=== PATIENT | male | born 1970 | race Caucasian/White ===

== ENCOUNTER 2017-08-29 15:51 | Emergency (ER) | payer OTHER ==
[~2017-08-29] VITALS: Ht 185.4 cm; Wt 74.8 kg
[~2017-08-29 15:51] MED LIST: BENTYL20 MG PO; Bactrim Ds Tab1 EACH PO; CHLO25 PO; CIPR500 PO; CIPRO500 MG PO; CREON DR 36,001 EACH PO; Cleocin HCl300 MG PO; ESOM20 PO; FAMO10 PO; FAMO20 PO; FOLI1 PO; Flagyl500 MG PO; GABA300 PO; HALO5 PO; HYDHCL25 PO; HYDMOR2 PO; HYDMOR8 PO; HYDR1TAB94 PO; INSR10I SC; INSULIN SYRING1 EAC1 SC; Keflex500 MG PO; LITHIUM; LORA.5 PO; LORA1 PO; Lantus100 UNIT/1 SC; METO10 PO; METR500 PO; Novolog Mix 70-33 M1; OMEP10ER PO; OMEP20ER PO; OMEP40CA12 PO; OXYACE5T PO; OXYC10TA19 PO; PANCRELIPASE D1 EACH PO; PANT20 PO; PROC10 PO; PROM25; PROM25 PO; PROM25S PR; Percocet 5-3251 EACH PO; Phenergan25 MG PR; QUET100 PO; RANI150 PO; RISP1 PO; RXDIPATR PO; RXLORA1 PO; RXOXYACE PO; RXPROM25 PO; SUCR1 PO; THIA100 PO; TRAM50 PO; TYLENOL PRN; VENL25 PO; ZENPEP DR 15,01 EACH PO; Zofran Odt4 MG SL; Zofran8 MG PO; [UNRECOGNIZED DRUG - OTHER]; [UNRECOGNIZED DRUG - OTHER]; [UNRECOGNIZED DRUG - OTHER] PO
[2017-08-29] MEDS ORDERED: PROMACTA12.5 MG PO (16:29)
[2017-08-29] MEDS ORDERED: ZEMPEP PO (16:30)
[2017-08-29] MEDS ORDERED: OXYC10TA19 (16:30)
[2017-08-29] MEDS ORDERED: PROM25 (16:31)
[2017-08-29 16:36] LABS: BASOPHILS ABSOLUTE AUTO 0.04 K/mm3 (0.00-0.23); BASOPHILS PERCENT AUTO 0 % (0-2); EOSINOPHILS ABSOLUTE AUTO 0.02 K/mm3 (0.00-0.68); EOSINOPHILS PERCENT AUTO 0 % (0-6); Hematocrit 41.8 % (37.0-53.0); Hemoglobin 13.7 g/dL (13.5-17.5); IMMATURE GRAN ABSOLUTE AUTO 0.06 K/mm3 (0.00-0.10); IMMATURE GRAN PERCENT AUTO 1 % (0-1); LYMPHOCYTES ABSOLUTE AUTO 1.08 K/mm3 (0.84-5.20); LYMPHOCYTES PERCENT AUTO 9 % (21-46); MONOCYTES PERCENT AUTO 7 % (4-13); Mean Corpuscular HGB 29.3 pg (26.0-34.0); Mean Corpuscular HGB Conc 32.8 g/dL (31.5-36.5); Mean Corpuscular Volume 90 fL (80-100); Mean Platelet Volume 11.1 fL (9.1-12.4); NEUTROPHILS ABSOLUTE AUTO 9.86 K/mm3 (1.96-9.15); NEUTROPHILS PERCENT AUTO 83 % (41-73); Platelet Count 218 K/mm3 (150-400); RDW Coefficient Variation 13.9 % (11.7-14.2); RDW Standard Deviation 45.7 fL (35.1-46.3); Red Blood Cell Count 4.67 M/mm3 (4.30-5.90); White Blood Cell Count 11.86 K/mm3 (4.00-11.30)
[2017-08-29 16:53] LABS: Alanine Aminotransfer (ALT/SGP 84 U/L (12-78); Albumin, Blood 2.9 g/dL (3.4-5.0); Albumin/Globulin Ratio 0.7 (0.8-1.8); Alk Phos 430 U/L (50-136); Anion Gap 7 mmol/L (6-16); Aspartate Aminotrans (AST/SGOT 80 U/L (12-37); Blood Urea Nitrogen 8 mg/dL (8-24); Bun/Creatinine Ratio 12.4 (12.0-20.0); CO2, Blood 32 mmol/L (21-32); Calcium, Blood 8.7 mg/dL (8.5-10.1); Chloride, Blood 97 mmol/L (98-108); Creatinine, Blood 0.64 mg/dL (0.60-1.20); Globulin, Blood 4.4 g/dL (2.2-4.0); Glomerular Filtration Rate >60 (60-); Glucose, Blood 176 mg/dL (70-99); Potassium, Blood 3.2 mmol/L (3.5-5.5); Sodium, Blood 136 mmol/L (136-145); Total Protein, Blood 7.3 g/dL (6.4-8.2)
== END 2017-08-29 19:45 | disposition home or self-care (01) ==
LOC: ER 15:51
PROVIDERS: Physician Assistant
DX: R11.2 Nausea with vomiting, unspecified (principal); R19.7 Diarrhea, unspecified; R10.13 Epigastric pain; G89.29 Other chronic pain; E87.6 Hypokalemia; R74.0 Nonspecific elevation of levels of transaminase and lactic acid dehydrogenase [LDH]; F17.210 Nicotine dependence, cigarettes, uncomplicated; Z79.899 Other long term (current) drug therapy
CPT/HCPCS: 36415; 80053; 83690; 85025; 96361; 96374; 96375; 96376; 99284; J2405; J3010; J7030

== ENCOUNTER 2017-09-03 18:37 | Observation (INO) | payer OTHER ==
[~2017-09-03] VITALS: Ht 185.4 cm; Wt 74.4 kg
[~2017-09-03 18:37] MED LIST changes: +OXYC10TA19; +PROMACTA12.5 MG PO; +ZEMPEP PO
[2017-09-03 19:47] LABS: BASOPHILS ABSOLUTE AUTO 0.02 K/mm3 (0.00-0.23); BASOPHILS PERCENT AUTO 0 % (0-2); EOSINOPHILS ABSOLUTE AUTO 0.03 K/mm3 (0.00-0.68); EOSINOPHILS PERCENT AUTO 0 % (0-6); Hematocrit 33.2 % (37.0-53.0); Hemoglobin 11.8 g/dL (13.5-17.5); IMMATURE GRAN ABSOLUTE AUTO 0.06 K/mm3 (0.00-0.10); IMMATURE GRAN PERCENT AUTO 0 % (0-1); LYMPHOCYTES ABSOLUTE AUTO 1.58 K/mm3 (0.84-5.20); LYMPHOCYTES PERCENT AUTO 12 % (21-46); MONOCYTES ABSOLUTE AUTO 1.64 K/mm3 (0.16-1.47); MONOCYTES PERCENT AUTO 12 % (4-13); Mean Corpuscular HGB 29.7 pg (26.0-34.0); Mean Corpuscular HGB Conc 35.5 g/dL (31.5-36.5); Mean Platelet Volume 10.3 fL (9.1-12.4); NEUTROPHILS PERCENT AUTO 76 % (41-73); Platelet Count 351 K/mm3 (150-400); RDW Coefficient Variation 14.8 % (11.7-14.2); RDW Standard Deviation 45.1 fL (35.1-46.3); Red Blood Cell Count 3.97 M/mm3 (4.30-5.90); White Blood Cell Count 13.63 K/mm3 (4.00-11.30)
[2017-09-03 19:48] LABS: Mean Corpuscular Volume 84 fL (80-100)
[2017-09-03 20:08] LABS: Alanine Aminotransfer (ALT/SGP 49 U/L (12-78); Albumin, Blood 2.3 g/dL (3.4-5.0); Albumin/Globulin Ratio 0.5 (0.8-1.8); Alk Phos 628 U/L (50-136); Anion Gap 4 mmol/L (6-16); Aspartate Aminotrans (AST/SGOT 46 U/L (12-37); Bilirubin, Total 10.4 mg/dL (0.1-1.0); Blood Urea Nitrogen 8 mg/dL (8-24); Bun/Creatinine Ratio 12.7 (12.0-20.0); CO2, Blood 38 mmol/L (21-32); Calcium, Blood 8.8 mg/dL (8.5-10.1); Chloride, Blood 92 mmol/L (98-108); Creatinine, Blood 0.63 mg/dL (0.60-1.20); Globulin, Blood 4.5 g/dL (2.2-4.0); Glomerular Filtration Rate >60 (60-); Glucose, Blood 99 mg/dL (70-99); Potassium, Blood 3.4 mmol/L (3.5-5.5); Sodium, Blood 134 mmol/L (136-145); Total Protein, Blood 6.8 g/dL (6.4-8.2)
[2017-09-03 22:03] LABS: Source, Urine Clean Catch
[2017-09-03 22:07] LABS: Blood, Urine 1+ (Neg); Glucose Qualitative, Urine Neg (Neg); Ketones, Urine 1+ (Neg); Leukocyte Esterase, Urine 1+ (Neg); Nitrite, Urine Pos (Neg); Protein, Urine 1+ (Neg); Urobilinogen, Urine 4+ (Normal)
[2017-09-03 22:16] LABS: Appearance, Urine Hazy (Clear); Bilirubin, Urine 3+ (Neg); Color, Urine Amber (P-Yellow)
[2017-09-03 22:22] LABS: Amorphous Light (0-Heavy); Bacteria Not Seen /hpf; Squamous Epithelial Cells Not Seen /hpf (Few); White Blood Cells, Urine Not Seen /hpf (0-5)
[2017-09-03 22:23] LABS: Red Blood Cells, Urine 0-2 /hpf (0-2)
[2017-09-04 21:45] LABS: Source, Urine Clean Catch
[2017-09-04 21:50] LABS: Appearance, Urine Clear (Clear); Blood, Urine 1+ (Neg); Glucose Qualitative, Urine Neg (Neg); Ketones, Urine Neg (Neg); Leukocyte Esterase, Urine 1+ (Neg); Nitrite, Urine Neg (Neg); Protein, Urine Neg (Neg); Urobilinogen, Urine 2+ (Normal)
[2017-09-04 21:52] LABS: Bilirubin, Urine 3+ (Neg)
[2017-09-04 21:53] LABS: Color, Urine Amber (P-Yellow)
[2017-09-04 22:03] LABS: Bacteria Rare /hpf; Red Blood Cells, Urine 0-2 /hpf (0-2); Squamous Epithelial Cells Rare /hpf (Few); White Blood Cells, Urine 0-2 /hpf (0-5)
[2017-09-05 12:48] LABS: BASOPHILS ABSOLUTE AUTO 0.03 K/mm3 (0.00-0.23); BASOPHILS PERCENT AUTO 0 % (0-2); EOSINOPHILS PERCENT AUTO 0 % (0-6); Hematocrit 27.2 % (37.0-53.0); Hemoglobin 9.9 g/dL (13.5-17.5); IMMATURE GRAN ABSOLUTE AUTO 0.14 K/mm3 (0.00-0.10); IMMATURE GRAN PERCENT AUTO 1 % (0-1); LYMPHOCYTES ABSOLUTE AUTO 0.38 K/mm3 (0.84-5.20); LYMPHOCYTES PERCENT AUTO 2 % (21-46); MONOCYTES ABSOLUTE AUTO 0.86 K/mm3 (0.16-1.47); MONOCYTES PERCENT AUTO 5 % (4-13); Mean Corpuscular HGB 29.8 pg (26.0-34.0); Mean Corpuscular HGB Conc 36.4 g/dL (31.5-36.5); Mean Corpuscular Volume 82 fL (80-100); NEUTROPHILS PERCENT AUTO 91 % (41-73); Platelet Count 242 K/mm3 (150-400); RDW Coefficient Variation 14.5 % (11.7-14.2); RDW Standard Deviation 41.9 fL (35.1-46.3); Red Blood Cell Count 3.32 M/mm3 (4.30-5.90); White Blood Cell Count 15.91 K/mm3 (4.00-11.30)
[2017-09-05 13:05] LABS: Alanine Aminotransfer (ALT/SGP 84 U/L (12-78); Albumin, Blood 1.8 g/dL (3.4-5.0); Albumin/Globulin Ratio 0.5 (0.8-1.8); Alk Phos 469 U/L (50-136); Anion Gap 8 mmol/L (6-16); Aspartate Aminotrans (AST/SGOT 182 U/L (12-37); Bilirubin, Total 11.6 mg/dL (0.1-1.0); Blood Urea Nitrogen 10 mg/dL (8-24); Bun/Creatinine Ratio 12.2 (12.0-20.0); CO2, Blood 28 mmol/L (21-32); Calcium, Blood 7.3 mg/dL (8.5-10.1); Chloride, Blood 98 mmol/L (98-108); Creatinine, Blood 0.82 mg/dL (0.60-1.20); Globulin, Blood 3.8 g/dL (2.2-4.0); Glomerular Filtration Rate >60 (60-); Glucose, Blood 102 mg/dL (70-99); Potassium, Blood 3.7 mmol/L (3.5-5.5); Sodium, Blood 134 mmol/L (136-145); Total Protein, Blood 5.6 g/dL (6.4-8.2)
== END 2017-09-05 17:55 | disposition short-term general hospital (02) ==
LOC: ER 18:37 → MEDS 18:38 → ER 09-04 17:58 → MEDS 09-04 19:23
PROVIDERS: Emergency Medicine; Family Medicine; Internal Medicine
DX: K83.1 Obstruction of bile duct (principal); K86.1 Other chronic pancreatitis; K86.89 Other specified diseases of pancreas; K83.8 Other specified diseases of biliary tract; I81 Portal vein thrombosis; F41.9 Anxiety disorder, unspecified; A41.9 Sepsis, unspecified organism; E87.1 Hypo-osmolality and hyponatremia; E87.6 Hypokalemia; D64.9 Anemia, unspecified; R19.7 Diarrhea, unspecified; E80.6 Other disorders of bilirubin metabolism; F17.210 Nicotine dependence, cigarettes, uncomplicated; Z98.890 Other specified postprocedural states; Z79.899 Other long term (current) drug therapy; Z88.6 Allergy status to analgesic agent
CPT/HCPCS: 36415; 74177; 76705; 80053; 81001; 82947; 83605; 83690; 85025; 87040; 87077; 87086; 87147; 87186; 96361; 96374; 96375; 99285; G0378; J0696; J2060; J2405; J2543; J2550; J3010; J3480; J7030; Q9967

== ENCOUNTER → 2018-07-09 | Outpatient (CLI) | payer OTHER ==
[~2018-07-09] MED LIST changes: +BASAGLAR K100 UNIT/1 SC; +Mapap500 M1 PO; -OMEP10ER PO; +POTCHL20ER PO; +Prilosec Otc20 MG PO; +THERAPEUTIC-M1 EAC1 PO; +Thiamine HCl100 MG PO; -ZEMPEP PO
[2018-07-09 10:22] LABS: BASOPHILS ABSOLUTE AUTO 0.06 K/mm3 (0.00-0.23); BASOPHILS PERCENT AUTO 1 % (0-2); EOSINOPHILS PERCENT AUTO 2 % (0-6); IMMATURE GRAN ABSOLUTE AUTO 0.01 K/mm3 (0.00-0.10); IMMATURE GRAN PERCENT AUTO 0 % (0-1); LYMPHOCYTES ABSOLUTE AUTO 1.43 K/mm3 (0.84-5.20); LYMPHOCYTES PERCENT AUTO 30 % (21-46); MONOCYTES ABSOLUTE AUTO 0.58 K/mm3 (0.16-1.47); MONOCYTES PERCENT AUTO 12 % (4-13); Mean Corpuscular HGB 29.5 pg (26.0-34.0); Mean Corpuscular HGB Conc 34.8 g/dL (31.5-36.5); Mean Corpuscular Volume 85 fL (80-100); NEUTROPHILS ABSOLUTE AUTO 2.53 K/mm3 (1.96-9.15); NEUTROPHILS PERCENT AUTO 54 % (41-73); Platelet Count 213 K/mm3 (150-400); RDW Coefficient Variation 13.9 % (11.7-14.2); RDW Standard Deviation 42.9 fL (35.1-46.3); Red Blood Cell Count 5.42 M/mm3 (4.30-5.90); White Blood Cell Count 4.71 K/mm3 (4.00-11.30)
[2018-07-09 10:41] LABS: Alanine Aminotransfer (ALT/SGP 425 U/L (12-78); Albumin/Globulin Ratio 0.9 (0.8-1.8); Alk Phos 158 U/L (40-126); Anion Gap 8 mmol/L (6-16); Blood Urea Nitrogen 12 mg/dL (8-24); Bun/Creatinine Ratio 16.7 (12.0-20.0); CO2, Blood 37 mmol/L (21-32); Calcium, Blood 7.9 mg/dL (8.5-10.1); Chloride, Blood 93 mmol/L (98-108); Creatinine, Blood 0.72 mg/dL (0.60-1.20); Free Thyroxine 1.14 ng/dL (0.70-1.60); Globulin, Blood 3.3 g/dL (2.2-4.0); Glomerular Filtration Rate >60 (60-); Glucose, Blood 349 mg/dL (70-99); Potassium, Blood 3.2 mmol/L (3.5-5.5); Sodium, Blood 138 mmol/L (136-145); Thyroid Stimulating Hormone 0.626 uIU/mL (0.360-4.800); Total Protein, Blood 6.3 g/dL (6.4-8.2)
[2018-07-09 10:42] LABS: Aspartate Aminotrans (AST/SGOT 1050 U/L (12-37)
[2018-07-10 08:13] LABS: HBSAG SCREEN Negative (Negative); HEP A AB, IGM Negative (Negative); HEP B CORE AB, IGM Negative (Negative); HEP C VIRUS AB <0.1 (0.0-0.9)
== END | disposition home or self-care (01) ==
LOC: LAB EV 10:17 → LAB SHORT 10:17
PROVIDERS: General Practice
DX: E86.0 Dehydration (principal); K70.10 Alcoholic hepatitis without ascites; R53.81 Other malaise
CPT/HCPCS: 80053; 80074; 83690; 84439; 84443; 85025

== ENCOUNTER 2018-07-15 18:37 | Inpatient (IN) | payer OTHER ==
[~2018-07-15] VITALS: Ht 185.4 cm; Wt 59.2 kg
[~2018-07-15 18:37] MED LIST changes: -BASAGLAR K100 UNIT/1 SC; -Mapap500 M1 PO; -POTCHL20ER PO; -THERAPEUTIC-M1 EAC1 PO; -Thiamine HCl100 MG PO
[2018-07-15 20:23] LABS: BASOPHILS ABSOLUTE AUTO 0.02 K/mm3 (0.00-0.23); BASOPHILS PERCENT AUTO 0 % (0-2); EOSINOPHILS ABSOLUTE AUTO 0.01 K/mm3 (0.00-0.68); EOSINOPHILS PERCENT AUTO 0 % (0-6); Hemoglobin 15.4 g/dL (13.5-17.5); IMMATURE GRAN ABSOLUTE AUTO 0.02 K/mm3 (0.00-0.10); IMMATURE GRAN PERCENT AUTO 0 % (0-1); LYMPHOCYTES ABSOLUTE AUTO 2.28 K/mm3 (0.84-5.20); LYMPHOCYTES PERCENT AUTO 49 % (21-46); MONOCYTES ABSOLUTE AUTO 0.53 K/mm3 (0.16-1.47); MONOCYTES PERCENT AUTO 11 % (4-13); Mean Corpuscular HGB Conc 36.7 g/dL (31.5-36.5); Mean Platelet Volume 11.6 fL (9.1-12.4); NEUTROPHILS ABSOLUTE AUTO 1.82 K/mm3 (1.96-9.15); NEUTROPHILS PERCENT AUTO 39 % (41-73); Platelet Count 80 K/mm3 (150-400); RDW Coefficient Variation 14.4 % (11.7-14.2); Red Blood Cell Count 5.14 M/mm3 (4.30-5.90); White Blood Cell Count 4.68 K/mm3 (4.00-11.30)
[2018-07-15 20:27] LABS: Mean Corpuscular Volume 82 fL (80-100)
[2018-07-15 20:40] LABS: Alanine Aminotransfer (ALT/SGP 345 U/L (12-78); Albumin, Blood 3.2 g/dL (3.4-5.0); Alk Phos 254 U/L (50-136); Anion Gap 16 mmol/L (6-16); Aspartate Aminotrans (AST/SGOT 273 U/L (12-37); Bilirubin, Total 7.2 mg/dL (0.1-1.0); Blood Urea Nitrogen 15 mg/dL (8-24); Bun/Creatinine Ratio 21.2 (12.0-20.0); CO2, Blood 32 mmol/L (21-32); Calcium, Blood 8.9 mg/dL (8.5-10.1); Chloride, Blood 82 mmol/L (98-108); Creatinine, Blood 0.71 mg/dL (0.60-1.20); Globulin, Blood 3.2 g/dL (2.2-4.0); Glomerular Filtration Rate >60 (60-); Glucose, Blood 318 mg/dL (70-99); Potassium, Blood 3.5 mmol/L (3.5-5.5); Sodium, Blood 130 mmol/L (136-145); Total Protein, Blood 6.4 g/dL (6.4-8.2)
[2018-07-15 20:58] LABS: Source, Urine Clean Catch
[2018-07-15 21:00] LABS: Blood, Urine 4+ (Neg); Glucose Qualitative, Urine 4+ (Neg); Ketones, Urine 2+ (Neg); Leukocyte Esterase, Urine 1+ (Neg); Nitrite, Urine Neg (Neg); Protein, Urine 2+ (Neg); Specific Gravity, Urine 1.025 (1.003-1.022); Urobilinogen, Urine 2+ (Normal)
[2018-07-15 21:06] LABS: Bilirubin, Urine 2+ (Neg)
[2018-07-15 21:07] LABS: Appearance, Urine Hazy (Clear); Color, Urine Orange (P-Yellow)
[2018-07-15 21:08] LABS: Squamous Epithelial Cells Rare /hpf (Few)
[2018-07-15 21:09] LABS: Bacteria Rare /hpf; Hyaline Casts Rare /lpf (0-2); Red Blood Cells, Urine Not Seen /hpf (0-2)
[2018-07-16 02:21] LABS: International Normalized Ratio 1.5; Prothrombin Time Results 15.3 Sec (9.7-11.5)
[2018-07-16 02:55] LABS: Calcium, Ionized (POC) 0.99 mmol/L (1.10-1.46); Chloride (POC) 88 mmol/L (98-108); Creatinine (POC) 0.6 mg/dL (0.8-1.3); Glucose (ISTAT POC) 212 mg/dL (70-99); Potassium (POC) 3.6 mmol/L (3.5-5.5); Sodium (POC) 134 mmol/L (135-148); Total CO2 (POC) 31 mmol/L (21-32)
[2018-07-16 05:42] LABS: Hematocrit 33.9 % (37.0-53.0); Hemoglobin 12.7 g/dL (13.5-17.5); Mean Corpuscular HGB 30.2 pg (26.0-34.0); Mean Corpuscular HGB Conc 37.5 g/dL (31.5-36.5); Mean Corpuscular Volume 81 fL (80-100); Platelet Count 59 K/mm3 (150-400); RDW Coefficient Variation 14.4 % (11.7-14.2); RDW Standard Deviation 40.8 fL (35.1-46.3)
[2018-07-16 06:00] LABS: Mean Platelet Volume 13.2 fL (9.1-12.4)
[2018-07-16 06:11] LABS: Alanine Aminotransfer (ALT/SGP 272 U/L (12-78); Albumin, Blood 2.7 g/dL (3.4-5.0); Albumin/Globulin Ratio 1.1 (0.8-1.8); Alk Phos 222 U/L (50-136); Anion Gap 10 mmol/L (6-16); Aspartate Aminotrans (AST/SGOT 233 U/L (12-37); Bilirubin, Total 8.2 mg/dL (0.1-1.0); Blood Urea Nitrogen 15 mg/dL (8-24); Bun/Creatinine Ratio 26.5 (12.0-20.0); CO2, Blood 34 mmol/L (21-32); Calcium, Blood 8.1 mg/dL (8.5-10.1); Chloride, Blood 92 mmol/L (98-108); Creatinine, Blood 0.57 mg/dL (0.60-1.20); Globulin, Blood 2.5 g/dL (2.2-4.0); Glomerular Filtration Rate >60 (60-); Glucose, Blood 224 mg/dL (70-99); Potassium, Blood 3.6 mmol/L (3.5-5.5); Sodium, Blood 136 mmol/L (136-145); Total Protein, Blood 5.2 g/dL (6.4-8.2)
[2018-07-16] MEDS ORDERED: INSR10I SC (18:31)
[2018-07-16] MEDS ORDERED: BASAGLAR K100 UNIT/1 SC (18:33)
[2018-07-16] MEDS ORDERED: Mapap500 M1 PO (18:34)
[2018-07-16] MEDS ORDERED: LORA.5 PO (18:36)
[2018-07-16] MEDS ORDERED: POTCHL20ER PO (18:38)
--- NOTE | 2018-07-16 18:41 | NUR ---
PT AOX4 WITH ANXIETY TREATED PER EMAR. PT 1 PERSON STANDBY FOR TRANSFERS CIWAs SCORE 7. PT SITTING IN BED APPROPRIATE WITH ALL CARE. NO DISTRESS AT THIS TIME.
[2018-07-16 22:21] LABS: U Amphetamine Screen Not Detected; U Barbituate Screen Not Detected; U Benzodiazapine Screen DETECTED; U Buprenorphine Screen Not Detected; U Cannabinoids Screen Not Detected; U Cocaine Screen Not Detected; U Methadone Screen Not Detected; U Methamphetamine Screen Not Detected; U Opiates Screen DETECTED; U Oxycodone Screen Not Detected; U Phencyclidine Screen Not Detected; U Propoxyphene Screen Not Detected
[2018-07-16 23:36] LABS: Adenovirus F 40/41 Not Detected (NOT DETECT); Astrovirus Not Detected (NOT DETECT); Campylobacter Sp Not Detected (NOT DETECT); Cryptosporidium Not Detected (NOT DETECT); Cyclospora Cayetanensis Not Detected (NOT DETECT); E. Coli O157 Not Detected (NOT DETECT); Entamoeba Histolytica Not Detected (NOT DETECT); Enteroaggregative E. coli-EAEC Not Detected (NOT DETECT); Enteropathogenic E. coli-EPEC Not Detected (NOT DETECT); Enterotoxigenic E. coli-ETEC Not Detected (NOT DETECT); Giardia Lamblia Not Detected (NOT DETECT); Norovirus GI/GII Not Detected (NOT DETECT); Plesiomonas Shigelloides Not Detected (NOT DETECT); Rotavirus A Not Detected (NOT DETECT); Salmonella Sp Not Detected (NOT DETECT); Sapovirus Not Detected (NOT DETECT); Shiga Toxin-prod E. coli-STEC Not Detected (NOT DETECT); Shigella/Enteroin E. coli-EIEC Not Detected (NOT DETECT); Vibrio Cholerae Not Detected (NOT DETECT); Vibrio Sp Not Detected (NOT DETECT); Yersinia Enterocolitica Not Detected (NOT DETECT)
--- NOTE | 2018-07-17 04:32 | NUR ---
SHIFT SUMMARY: PT IS ALERT AND ORIENTED. PT IS CALM AND COOPERATIVE WITH CARE. PT CALLS APPROPRIATELY. PT IS INDEPENDENT IN THE ROOM. PT REPORTS ABD PAIN AND ETOH WITHDRAWAL SYMPTOMS, CIWA 9, MEDICATING PER EMAR. PT DENIES NAUSEA, VOMITING, AND SOB. PT SLEPT VERY LITTLE OVERNIGHT. NO ACUTE CHANGES OR COMPLICATIONS THIS SHIFT. WILL REPORT TO DAY NURSE.
[2018-07-17 08:12] LABS: HBSAG SCREEN Negative (Negative); HEP A AB, IGM Negative (Negative); HEP B CORE AB, IGM Negative (Negative); HEP C VIRUS AB <0.1 (0.0-0.9)
[2018-07-17 10:35] LABS: BASOPHILS ABSOLUTE AUTO 0.02 K/mm3 (0.00-0.23); BASOPHILS PERCENT AUTO 0 % (0-2); EOSINOPHILS ABSOLUTE AUTO 0.03 K/mm3 (0.00-0.68); EOSINOPHILS PERCENT AUTO 1 % (0-6); Hematocrit 35.8 % (37.0-53.0); Hemoglobin 13.1 g/dL (13.5-17.5); IMMATURE GRAN ABSOLUTE AUTO 0.01 K/mm3 (0.00-0.10); IMMATURE GRAN PERCENT AUTO 0 % (0-1); LYMPHOCYTES ABSOLUTE AUTO 1.67 K/mm3 (0.84-5.20); LYMPHOCYTES PERCENT AUTO 31 % (21-46); MONOCYTES ABSOLUTE AUTO 0.57 K/mm3 (0.16-1.47); MONOCYTES PERCENT AUTO 11 % (4-13); Mean Corpuscular HGB 30.2 pg (26.0-34.0); Mean Corpuscular HGB Conc 36.6 g/dL (31.5-36.5); Mean Corpuscular Volume 83 fL (80-100); NEUTROPHILS ABSOLUTE AUTO 3.06 K/mm3 (1.96-9.15); NEUTROPHILS PERCENT AUTO 57 % (41-73); Platelet Count 52 K/mm3 (150-400); RDW Coefficient Variation 14.9 % (11.7-14.2); RDW Standard Deviation 43.6 fL (35.1-46.3); Red Blood Cell Count 4.34 M/mm3 (4.30-5.90); White Blood Cell Count 5.36 K/mm3 (4.00-11.30)
[2018-07-17 10:51] LABS: Alanine Aminotransfer (ALT/SGP 231 U/L (12-78); Albumin, Blood 2.7 g/dL (3.4-5.0); Albumin/Globulin Ratio 0.9 (0.8-1.8); Alk Phos 325 U/L (50-136); Anion Gap 9 mmol/L (6-16); Aspartate Aminotrans (AST/SGOT 179 U/L (12-37); Bilirubin, Total 11.4 mg/dL (0.1-1.0); Blood Urea Nitrogen 12 mg/dL (8-24); Bun/Creatinine Ratio 20.2 (12.0-20.0); CO2, Blood 31 mmol/L (21-32); Calcium, Blood 7.8 mg/dL (8.5-10.1); Chloride, Blood 91 mmol/L (98-108); Creatinine, Blood 0.59 mg/dL (0.60-1.20); Glomerular Filtration Rate >60 (60-); Glucose, Blood 339 mg/dL (70-99); Potassium, Blood 3.1 mmol/L (3.5-5.5); Sodium, Blood 131 mmol/L (136-145); Total Protein, Blood 5.7 g/dL (6.4-8.2)
--- NOTE | 2018-07-17 18:32 | NUR ---
SHFIT SUMMARY PATIENT A&O X 3. SEEMS CONFUSED AT TIMES. RN MEDICATED FOR ABDOMINAL PAIN X2. CIWA Q 4HRS, MEDICATED PER Jul. PATIENT HAS BEEN RESTING MOST OF THE SHIFT. CONTINUE TO REQUEST FOR HIS DIET TO BE ADVANCED TO REGULAR DIET. DR. BARRETT NOTIFIED, DIET CONTINUES TO BE CLEAR LIQUID AT THIS TIME. ACHS. IV POTASSIUM CHLORIDE D/C THIS SHIFT DUE TO PATIENT NOT TOLERATING WELL, STATED IT WAS BURNING EVEN THOUGH RN HAD IT RUNNING CONCURRENTLY W/ NS @ A LOWER RATE. DR. BARRETT NOTIFIED. LIQUID POTASSIUM GIVEN PER Jul. BANANA BAG RUNNING @ 200ML/HR. IV ABX PER Jul. BED IN LOWEST POSITION, CALL LIGHT WITHIN REACH. NO OTHER ACUTE CHANGES. RN WILL CONTINUE TO MONITOR.
--- NOTE | 2018-07-18 04:50 | NUR ---
SHIFT SUMMARY: PT IS ALERT AND ORIENTED WITH MINOR CONFUSION. PT IS CALM AND COOPERATIVE WITH CARE. PT CALLS APPROPRIATELY. PT'S IV OCCLUDING OFTEN, STARTED NEW 22G IN THE L. FOREARM WHICH SO FAR HAS SOLVED THE PROBLEM. PT IS INDEPENDENT IN THE ROOM. PT CONTINUES TO REPORT ABD PAIN, MEDICATING PER EMAR. PT WANTS WHOLE FOOD FOR BREAKFAST AND IS WILLING TO CUT BACK ON THE PAIN MEDICATION PER DR. BARRETT'S REQUEST. PT DENIES NAUSEA, VOMITING, AND SOB. NO ACUTE CHANGES OR COMPLICATIONS OVERNIGHT. WILL REPORT TO DAY NURSE.
[2018-07-18 05:18] LABS: BASOPHILS ABSOLUTE AUTO 0.01 K/mm3 (0.00-0.23); BASOPHILS PERCENT AUTO 0 % (0-2); EOSINOPHILS ABSOLUTE AUTO 0.07 K/mm3 (0.00-0.68); EOSINOPHILS PERCENT AUTO 2 % (0-6); Hematocrit 31.7 % (37.0-53.0); Hemoglobin 11.4 g/dL (13.5-17.5); IMMATURE GRAN ABSOLUTE AUTO 0.02 K/mm3 (0.00-0.10); IMMATURE GRAN PERCENT AUTO 0 % (0-1); LYMPHOCYTES ABSOLUTE AUTO 1.85 K/mm3 (0.84-5.20); LYMPHOCYTES PERCENT AUTO 41 % (21-46); MONOCYTES PERCENT AUTO 9 % (4-13); Mean Corpuscular HGB 30.8 pg (26.0-34.0); NEUTROPHILS PERCENT AUTO 48 % (41-73); Platelet Count 51 K/mm3 (150-400); RDW Coefficient Variation 15.6 % (11.7-14.2); RDW Standard Deviation 47.5 fL (35.1-46.3); White Blood Cell Count 4.55 K/mm3 (4.00-11.30)
[2018-07-18 05:23] LABS: Mean Corpuscular Volume 86 fL (80-100)
[2018-07-18 05:30] LABS: International Normalized Ratio 1.03; Prothrombin Time Results 10.9 Sec (9.7-11.5)
[2018-07-18 05:41] LABS: Alanine Aminotransfer (ALT/SGP 172 U/L (12-78); Albumin, Blood 2.3 g/dL (3.4-5.0); Albumin/Globulin Ratio 0.9 (0.8-1.8); Alk Phos 281 U/L (50-136); Anion Gap 7 mmol/L (6-16); Aspartate Aminotrans (AST/SGOT 113 U/L (12-37); Bilirubin, Total 6.6 mg/dL (0.1-1.0); Blood Urea Nitrogen 13 mg/dL (8-24); Bun/Creatinine Ratio 23.4 (12.0-20.0); CO2, Blood 31 mmol/L (21-32); Calcium, Blood 7.8 mg/dL (8.5-10.1); Chloride, Blood 101 mmol/L (98-108); Creatinine, Blood 0.56 mg/dL (0.60-1.20); Globulin, Blood 2.7 g/dL (2.2-4.0); Glomerular Filtration Rate >60 (60-); Glucose, Blood 158 mg/dL (70-99); Potassium, Blood 3.4 mmol/L (3.5-5.5); Sodium, Blood 139 mmol/L (136-145)
--- NOTE | 2018-07-18 16:33 | NUR ---
SUMMARY PT HAS BEEN A/O X4 TODAY, STATE DOES NOT FEEL LIKE HIMSELF MENTALLY, STATE FORGETFULNESS. STATE SOMEWHAT ANXIOUS. MILD TREMORS. NO DELERIUM. CIWA SCORES LOW, 4. HAVE GIVEN ATIVAN 1MG X2 AND LIBRIUM 50MG X1 SO FAR TODAY FOR ETOH W/D. VSS W HR 90'S. DR BARRETT IN TO SEE PT, REVIEW LABS & NEED FOR ABSTINENCE FROM ETOH, PT SEEMS RECEPTIVE. HAVE ENCOURAGED & RE-ENFORCED T/O DAY. DR BARRETT QUESTION + FOR C-DIFF, PT HAS NOT HAD DIARRHEA. ORDER LACTULOSE & STOOL SAMPLE. URINE IS DRK/TEA COLOR THIS AM, SKIN JAUNDICED, BILIRUBIN 6.6, LFTS ELEVATED HOWEVER DR STATE IMPROVING. IVF'S STOPPED, ORAL ANTIBX ORDERED.
--- NOTE | 2018-07-19 04:01 | NUR ---
SHIFT SUMMARY: PT IS ALERT AND ORIENTED. PT IS CALM AND COOPERATIVE WITH CARE, INTERMITTENTLY ANXIOUS AND AGITATED R/T WITHDRAWAL. PT IS INDEPENDENT IN THE ROOM. CIWA SCORE OF 4, MEDICATING PER EMAR. PT CONTINUES TO REPORT INTERMITTENT ABD PAIN, MEDICATING PER EMAR. PT DENIES NAUSEA, VOMITING, AND SOB. PT DID NOT SLEEP OVERNIGHT. NO ACUTE CHANGES OR COMPLICATIONS THIS SHIFT. BED IN LOW POSITION, CALL LIGHT WITHIN REACH.
[2018-07-19 05:46] LABS: BASOPHILS ABSOLUTE AUTO 0.01 K/mm3 (0.00-0.23); BASOPHILS PERCENT AUTO 0 % (0-2); EOSINOPHILS ABSOLUTE AUTO 0.07 K/mm3 (0.00-0.68); EOSINOPHILS PERCENT AUTO 2 % (0-6); Hemoglobin 9.8 g/dL (13.5-17.5); IMMATURE GRAN ABSOLUTE AUTO 0.01 K/mm3 (0.00-0.10); IMMATURE GRAN PERCENT AUTO 0 % (0-1); LYMPHOCYTES ABSOLUTE AUTO 1.97 K/mm3 (0.84-5.20); LYMPHOCYTES PERCENT AUTO 44 % (21-46); MONOCYTES PERCENT AUTO 14 % (4-13); Mean Corpuscular HGB 30.1 pg (26.0-34.0); Mean Corpuscular Volume 86 fL (80-100); NEUTROPHILS ABSOLUTE AUTO 1.78 K/mm3 (1.96-9.15); NEUTROPHILS PERCENT AUTO 40 % (41-73); Platelet Count 52 K/mm3 (150-400); RDW Coefficient Variation 15.7 % (11.7-14.2); RDW Standard Deviation 48.1 fL (35.1-46.3); Red Blood Cell Count 3.26 M/mm3 (4.30-5.90); White Blood Cell Count 4.44 K/mm3 (4.00-11.30)
[2018-07-19 06:07] LABS: Alanine Aminotransfer (ALT/SGP 140 U/L (12-78); Albumin, Blood 2.3 g/dL (3.4-5.0); Albumin/Globulin Ratio 0.9 (0.8-1.8); Alk Phos 275 U/L (50-136); Anion Gap 7 mmol/L (6-16); Aspartate Aminotrans (AST/SGOT 73 U/L (12-37); Bilirubin, Total 3.1 mg/dL (0.1-1.0); Blood Urea Nitrogen 15 mg/dL (8-24); Bun/Creatinine Ratio 23.5 (12.0-20.0); CO2, Blood 31 mmol/L (21-32); Calcium, Blood 8.5 mg/dL (8.5-10.1); Chloride, Blood 100 mmol/L (98-108); Creatinine, Blood 0.64 mg/dL (0.60-1.20); Globulin, Blood 2.7 g/dL (2.2-4.0); Glomerular Filtration Rate >60 (60-); Glucose, Blood 200 mg/dL (70-99); Potassium, Blood 3.5 mmol/L (3.5-5.5); Sodium, Blood 138 mmol/L (136-145)
--- NOTE | 2018-07-19 19:37 | NUR ---
SUMM- PT ALERT TO SELF, PLACE AND CIRCUMSTANCES. THIS AM PT WAS HIGHLY AGGITATED OF THE SOUNDS AROUND HIM, HIS MEALS NOT BEING RITGHT AND NOT HAVING A CIGARETTE. MEDICATED WITH ATIVAN THAT HELPED SOME. PT STILL AGGITATED AND CALLED DAD TO HAVE HIM COME GET HIM HE WANTED TO LEAVE AMA. HIS DAD Lizett NellaDEVENDRA CALLED AND STATED HE INSISTED HIS SON STAY IN THE HOSPITAL AND BOTH HIM AND RN WERE ABLE TO ENCOURAGE PT TO STAY. DR AGUILAR MADE AWARE PT WANTED TO TO. PT INSISTED TO GO OUTSIDE TO SMOKE, INSTRUCTED ON HAND HEIGENE SINCE HE IS C-DIFF POS. MADE AWARE OF RISKS OF FALLING AND TELE SHUTTING OFF. HE IS STEADY ON HIS FEET AND WENT OUTSIDE TO SMOKE X2. ONCE VOLUNTEERS HAD TO WHEEL HIM BACK TO HIS ROOM BECAUSE HE BECAME TOO TIRED. THROUGH SHIFT PT BECAME LESS ANXIOUS AND COOPERATIVE. RN ENCOURAGED HIS SOBRIETY AND POSITIVE SELF TALK. PT CRIED AND SEEMS RESPONSIVE TO ENCOURAGEMENT AND WANTS TO TRY TO STAY SOBER. AA ENCOURAGED AFTER DISCHARGE.
--- NOTE | 2018-07-20 03:56 | NUR ---
SHIFT SUMMARY THE PATIENTPRESENTED THIS SHIFT WITH CLEAR LUNG SOUNDS, A&O X4 AND WITH VITALS WNL. THE PATIENT IS INDEPENDANT IN HIS ROOM AND HAS STAY ED THERE MOST OF THE SHIFT. THE PATIENT USED HIS CALL LIGHT APPROPERIATLY. THE PATIENT HAS HAD SOME ISSSUES WITH HIS TELE LEADS WHEN UP. THE PATIENT IS SLEEPING AT THIS TIME, WILL CONTINUE TO MONITOR.
[2018-07-20 05:58] LABS: BASOPHILS ABSOLUTE AUTO 0.02 K/mm3 (0.00-0.23); BASOPHILS PERCENT AUTO 0 % (0-2); EOSINOPHILS ABSOLUTE AUTO 0.07 K/mm3 (0.00-0.68); EOSINOPHILS PERCENT AUTO 1 % (0-6); Hematocrit 31.9 % (37.0-53.0); Hemoglobin 11.1 g/dL (13.5-17.5); IMMATURE GRAN ABSOLUTE AUTO 0.01 K/mm3 (0.00-0.10); IMMATURE GRAN PERCENT AUTO 0 % (0-1); LYMPHOCYTES ABSOLUTE AUTO 2.55 K/mm3 (0.84-5.20); LYMPHOCYTES PERCENT AUTO 52 % (21-46); MONOCYTES ABSOLUTE AUTO 0.67 K/mm3 (0.16-1.47); MONOCYTES PERCENT AUTO 14 % (4-13); Mean Corpuscular HGB 30.8 pg (26.0-34.0); Mean Corpuscular HGB Conc 34.8 g/dL (31.5-36.5); Mean Platelet Volume 12.3 fL (9.1-12.4); NEUTROPHILS ABSOLUTE AUTO 1.62 K/mm3 (1.96-9.15); NEUTROPHILS PERCENT AUTO 33 % (41-73); Platelet Count 72 K/mm3 (150-400); RDW Coefficient Variation 15.9 % (11.7-14.2); RDW Standard Deviation 50.2 fL (35.1-46.3); White Blood Cell Count 4.94 K/mm3 (4.00-11.30)
[2018-07-20 06:01] LABS: Mean Corpuscular Volume 89 fL (80-100)
[2018-07-20 06:17] LABS: Alanine Aminotransfer (ALT/SGP 136 U/L (12-78); Albumin, Blood 2.7 g/dL (3.4-5.0); Albumin/Globulin Ratio 0.9 (0.8-1.8); Alk Phos 245 U/L (50-136); Anion Gap 6 mmol/L (6-16); Aspartate Aminotrans (AST/SGOT 58 U/L (12-37); Bilirubin, Total 2.9 mg/dL (0.1-1.0); Blood Urea Nitrogen 7 mg/dL (8-24); Bun/Creatinine Ratio 10.2 (12.0-20.0); CO2, Blood 34 mmol/L (21-32); Calcium, Blood 8.2 mg/dL (8.5-10.1); Chloride, Blood 102 mmol/L (98-108); Creatinine, Blood 0.68 mg/dL (0.60-1.20); Globulin, Blood 3.1 g/dL (2.2-4.0); Glomerular Filtration Rate >60 (60-); Glucose, Blood 152 mg/dL (70-99); Magnesium, Blood 1.7 mg/dL (1.6-2.4); Phosphorus, Blood 3.5 mg/dL (2.5-4.9); Potassium, Blood 3.2 mmol/L (3.5-5.5); Sodium, Blood 142 mmol/L (136-145); Total Protein, Blood 5.8 g/dL (6.4-8.2)
--- NOTE | 2018-07-20 18:04 | NUR ---
SHIFT SUMMARY. A&OX3, PLEASANT. MILD WITHDRAWL SYMPTOMS, SOME ANXIETY AND TREMORS. PRN LIBRIUM AND ATIVAN GIVEN. CIWA LESS 8-9. PT REPORTED PAIN TO ABDOMEN SECONDARY TO HX OF PANCREAS ISSUES, MANAGED WELL WITH PRN ROXICODONE. PT DENIES N/V, SOB. PT WENT OUT TO SMOKE VIA W/C ONCE. PT REPORTS HIS DAD WILL BE TO [place] FROM [place] TO UNLOCK HIS HOUSE IN TWO DAYS. PATIENT SEEN BY PHYSICAL THERAPY, THEY REPORT PT IS VERY WEAK, PT HAS BEEN INDEPENDENT IN ROOM. NO OTHER CHANGES.
--- NOTE | 2018-07-21 04:26 | NUR ---
SHIFT SUMMARY THE PATIENT PRESENT THIS SHIFT WITH CLEAR LUNGS SOUNDS, A&O X4 AND VITALS WNL. THE PATIENT IS INDEPENDENT IN HIS ROOM AND CALLS APPROPIATELY. THE PATIENT HAS ASKED FOR FOOD MOST OF THE SHIFT. THE PATIENT HAS SLEPT ABOUT HALF THE SHIFT, CLAIMING INSOMIA. THE PATIENT IS SLEEPING AT THIS TIME, WILL CONTINUE TO MONITOR.
[2018-07-21 05:18] LABS: BASOPHILS ABSOLUTE AUTO 0.02 K/mm3 (0.00-0.23); BASOPHILS PERCENT AUTO 0 % (0-2); EOSINOPHILS ABSOLUTE AUTO 0.08 K/mm3 (0.00-0.68); EOSINOPHILS PERCENT AUTO 2 % (0-6); Hematocrit 26.4 % (37.0-53.0); IMMATURE GRAN ABSOLUTE AUTO 0.01 K/mm3 (0.00-0.10); IMMATURE GRAN PERCENT AUTO 0 % (0-1); LYMPHOCYTES ABSOLUTE AUTO 1.97 K/mm3 (0.84-5.20); LYMPHOCYTES PERCENT AUTO 42 % (21-46); MONOCYTES PERCENT AUTO 15 % (4-13); Mean Corpuscular HGB 30.5 pg (26.0-34.0); Mean Corpuscular HGB Conc 34.1 g/dL (31.5-36.5); Mean Corpuscular Volume 90 fL (80-100); Mean Platelet Volume 12.4 fL (9.1-12.4); NEUTROPHILS ABSOLUTE AUTO 1.96 K/mm3 (1.96-9.15); NEUTROPHILS PERCENT AUTO 41 % (41-73); Platelet Count 82 K/mm3 (150-400); RDW Coefficient Variation 15.9 % (11.7-14.2); RDW Standard Deviation 50.1 fL (35.1-46.3); Red Blood Cell Count 2.95 M/mm3 (4.30-5.90); White Blood Cell Count 4.74 K/mm3 (4.00-11.30)
[2018-07-21 06:01] LABS: Alanine Aminotransfer (ALT/SGP 101 U/L (12-78); Albumin, Blood 2.4 g/dL (3.4-5.0); Albumin/Globulin Ratio 0.9 (0.8-1.8); Alk Phos 201 U/L (50-136); Anion Gap 4 mmol/L (6-16); Aspartate Aminotrans (AST/SGOT 37 U/L (12-37); Bilirubin, Total 1.5 mg/dL (0.1-1.0); Blood Urea Nitrogen 13 mg/dL (8-24); Bun/Creatinine Ratio 19.2 (12.0-20.0); CO2, Blood 33 mmol/L (21-32); Calcium, Blood 8.1 mg/dL (8.5-10.1); Chloride, Blood 102 mmol/L (98-108); Creatinine, Blood 0.68 mg/dL (0.60-1.20); Globulin, Blood 2.7 g/dL (2.2-4.0); Glomerular Filtration Rate >60 (60-); Glucose, Blood 302 mg/dL (70-99); Potassium, Blood 3.8 mmol/L (3.5-5.5); Sodium, Blood 139 mmol/L (136-145); Total Protein, Blood 5.1 g/dL (6.4-8.2)
--- NOTE | 2018-07-21 16:34 | NUR ---
SUMMARY PT IS A/O X4, IND IN ROOM, GAIT STEADY HOWEVER HE CONTINUES SOMEWHAT WEAK. PHYTHER WORK WITH HIM TODAY, AMBULATE IN ROOM. DC ETOH W/D, CIWA SCORES LOW, LAST 2 R/T MILD ANXIOUSNESS, MILD TREMOR. HAVE GIVEN ATIVAN & LIBRIUM PRN FOR RELIEF. BP RUNS LOW, 94/59. PT IS NO LONGER JAUNDICED. DR ORTIZ STATE LFT'S CONTINUE TO IMPROVE, BILIRUBIN DOWN @ 1.5. PT STATED SOME UPPER ABD PAIN THIS AM THAT HE STATE IS R/T PAST PANCREAS SURG, PRN OXYCODONE GIVEN FOR RELIEF. HE CONTINUES IN CONTACT ISOLATION R/T BEING A CARRIER OF C-DIFF SPORE. INFECTION RN STATE HE CAN NOT BE CLEARED.
[2018-07-22 05:15] LABS: BASOPHILS ABSOLUTE AUTO 0.02 K/mm3 (0.00-0.23); BASOPHILS PERCENT AUTO 0 % (0-2); EOSINOPHILS ABSOLUTE AUTO 0.09 K/mm3 (0.00-0.68); EOSINOPHILS PERCENT AUTO 2 % (0-6); Hematocrit 26.5 % (37.0-53.0); Hemoglobin 8.9 g/dL (13.5-17.5); IMMATURE GRAN ABSOLUTE AUTO 0.01 K/mm3 (0.00-0.10); IMMATURE GRAN PERCENT AUTO 0 % (0-1); LYMPHOCYTES ABSOLUTE AUTO 2.01 K/mm3 (0.84-5.20); LYMPHOCYTES PERCENT AUTO 42 % (21-46); MONOCYTES ABSOLUTE AUTO 0.88 K/mm3 (0.16-1.47); MONOCYTES PERCENT AUTO 19 % (4-13); Mean Corpuscular HGB 30.7 pg (26.0-34.0); Mean Corpuscular HGB Conc 33.6 g/dL (31.5-36.5); Mean Corpuscular Volume 91 fL (80-100); Mean Platelet Volume 11.4 fL (9.1-12.4); NEUTROPHILS ABSOLUTE AUTO 1.74 K/mm3 (1.96-9.15); NEUTROPHILS PERCENT AUTO 37 % (41-73); Platelet Count 116 K/mm3 (150-400); RDW Coefficient Variation 16.4 % (11.7-14.2); RDW Standard Deviation 50.4 fL (35.1-46.3); White Blood Cell Count 4.75 K/mm3 (4.00-11.30)
[2018-07-22 05:25] LABS: International Normalized Ratio 1.05; Prothrombin Time Results 11.1 Sec (9.7-11.5)
--- NOTE | 2018-07-22 05:48 | NUR ---
*SHIFT SUMMARY* PATIENT IS ALERT AND ORIENTED. INDEPENDENT IN ROOM. COMPLAINS OF FEELING ANXIOUS FROM ALL THE YELLING IN THE ROOMS AROUND HIM. PATIENT REQUESTED TO HAVE HIS LIBRIUM AND WAS MEDICATED ORDERED. PATIENT PACED BACK AND FORTH IN ROOM AT TIMES. PATIENT HAD A HARD TIME GETTING SLEEP EVEN WITH HIS DOOR BEING CLOSED. EARLY THIS AM PATIENT REQUESTED TO HAVE HIS ATIVAN AND PAIN PILL TO HELP SLEEP. PT HAD SEVERAL SNACKS THROUGHOUT THE NIGHT. CALL LIGHT WITHIN REACH, BED LOWERED AND LOCKED.
[2018-07-22 06:17] LABS: Alanine Aminotransfer (ALT/SGP 83 U/L (12-78); Albumin, Blood 2.4 g/dL (3.4-5.0); Albumin/Globulin Ratio 0.9 (0.8-1.8); Alk Phos 171 U/L (50-136); Anion Gap 4 mmol/L (6-16); Aspartate Aminotrans (AST/SGOT 33 U/L (12-37); Bilirubin, Total 1.4 mg/dL (0.1-1.0); Blood Urea Nitrogen 11 mg/dL (8-24); Bun/Creatinine Ratio 17.5 (12.0-20.0); CO2, Blood 32 mmol/L (21-32); Calcium, Blood 8.3 mg/dL (8.5-10.1); Chloride, Blood 103 mmol/L (98-108); Creatinine, Blood 0.63 mg/dL (0.60-1.20); Globulin, Blood 2.8 g/dL (2.2-4.0); Glomerular Filtration Rate >60 (60-); Glucose, Blood 297 mg/dL (70-99); Sodium, Blood 139 mmol/L (136-145); Total Protein, Blood 5.2 g/dL (6.4-8.2)
[2018-07-22] MEDS ORDERED: FOLI1 PO (11:00)
[2018-07-22] MEDS ORDERED: THERAPEUTIC-M1 EAC1 PO (11:01)
[2018-07-22] MEDS ORDERED: Thiamine HCl100 MG PO (11:01)
--- NOTE | 2018-07-22 11:41 | NUR ---
DISCHARGE DR AGUILAR IN TO SEE PT THIS AM, STATE OK FOR D/C HOME TODAY, PT IS AGREEABLE. NO TREMOR THIS AM, STATE MILD ANXIETY. PRN ATIVAN GIVEN. DR ORTIZ PROVIDE HARD COPY SCRIPT FOR ATIVAN @ HOME. [facility] D/[facility] TISSUE SPECIALIST STATE PT TO F/U WITH [facility] TOMORROW, GAVE MESSAGE TO FAMILY, NOTIFIED PT. APPLICATION FOR [facility] GIVEN TO PT TO FILL OUT PRIOR TO HIS APPT, HE VERBALIZE UNDERSTANDING. D/C INSTRUCT PROVIDED WITH EMPHASIS ON F/U WITH PCP & [facility]. PT FAMILY WILL BE IN FOR TRANSPORTATION HOME APPROX 1230.
== END 2018-07-22 12:55 | disposition home or self-care (01) | DRG 897 ==
LOC: ER 18:37 → ERHOLD 07-16 00:19 → MEDS 07-16 01:26 → ENPENDDIS 07-22 10:11 → MEDS 07-22 12:55
PROVIDERS: Emergency Medicine; Hospitalist; Internal Medicine; Physician Assistant; ADMIT Internal Medicine
DX: F10.220 Alcohol dependence with intoxication, uncomplicated (principal); K86.1 Other chronic pancreatitis; R17 Unspecified jaundice; F41.9 Anxiety disorder, unspecified; K21.9 Gastro-esophageal reflux disease without esophagitis; F17.210 Nicotine dependence, cigarettes, uncomplicated; E11.65 Type 2 diabetes mellitus with hyperglycemia; K70.10 Alcoholic hepatitis without ascites; D69.6 Thrombocytopenia, unspecified; K29.00 Acute gastritis without bleeding; E87.6 Hypokalemia; B96.89 Other specified bacterial agents as the cause of diseases classified elsewhere
CPT/HCPCS: 36415; 74177; 80047; 80053; 80074; 81001; 82140; 82728; 82947; 83036; 83540; 83550; 83690; 83735; 84100; 85014; 85025; 85027; 85610; 87015; 87045; 87046; 87086; 87205; 87324; 87493; 87507; 87899; 93005; 93010; 96361; 96372-59; 96374-59; 96375; 96376; 97110; 97116; 97161; 99285-25; C9113; G0480; J1650; J2060; J2270; J2405; J3475; J3480; J7030; J7042; Q9967

== ENCOUNTER 2018-10-14 17:30 | Emergency (ER) | payer OTHER ==
[~2018-10-14] VITALS: Ht 185.4 cm; Wt 68.0 kg
[~2018-10-14 17:30] MED LIST changes: +BASAGLAR K100 UNIT/1 SC; +MULTI VITAMIN1 EACH PO; +Mapap500 M1 PO; +POTCHL20ER PO; +Thiamine HCl100 MG PO
[2018-10-14 18:55] LABS: Source, Urine Clean Catch
[2018-10-14 18:57] LABS: Bilirubin, Urine Neg (Neg); Blood, Urine Neg (Neg); Glucose Qualitative, Urine 4+ (Neg); Ketones, Urine 1+ (Neg); Leukocyte Esterase, Urine Neg (Neg); Nitrite, Urine Neg (Neg); Protein, Urine 1+ (Neg); Urobilinogen, Urine 2+ (Normal)
[2018-10-14 19:04] LABS: Appearance, Urine Clear (Clear); Color, Urine Yellow (P-Yellow)
[2018-10-14 19:20] LABS: BASOPHILS ABSOLUTE AUTO 0.07 K/mm3 (0.00-0.23); BASOPHILS PERCENT AUTO 1 % (0-2); EOSINOPHILS ABSOLUTE AUTO 0.04 K/mm3 (0.00-0.68); EOSINOPHILS PERCENT AUTO 1 % (0-6); Hematocrit 45.9 % (37.0-53.0); Hemoglobin 15.7 g/dL (13.5-17.5); IMMATURE GRAN ABSOLUTE AUTO 0.02 K/mm3 (0.00-0.10); IMMATURE GRAN PERCENT AUTO 0 % (0-1); LYMPHOCYTES ABSOLUTE AUTO 2.26 K/mm3 (0.84-5.20); LYMPHOCYTES PERCENT AUTO 41 % (21-46); MONOCYTES ABSOLUTE AUTO 0.62 K/mm3 (0.16-1.47); MONOCYTES PERCENT AUTO 11 % (4-13); Mean Corpuscular HGB 29.5 pg (26.0-34.0); Mean Corpuscular HGB Conc 34.2 g/dL (31.5-36.5); Mean Corpuscular Volume 86 fL (80-100); Mean Platelet Volume 10.8 fL (9.1-12.4); NEUTROPHILS ABSOLUTE AUTO 2.51 K/mm3 (1.96-9.15); NEUTROPHILS PERCENT AUTO 46 % (41-73); Platelet Count 177 K/mm3 (150-400); RDW Coefficient Variation 14.1 % (11.7-14.2); RDW Standard Deviation 44.2 fL (35.1-46.3); Red Blood Cell Count 5.32 M/mm3 (4.30-5.90); White Blood Cell Count 5.52 K/mm3 (4.00-11.30)
[2018-10-14 19:41] LABS: Alanine Aminotransfer (ALT/SGP 288 U/L (12-78); Albumin, Blood 3.5 g/dL (3.4-5.0); Alk Phos 213 U/L (50-136); Anion Gap 9 mmol/L (6-16); Aspartate Aminotrans (AST/SGOT 352 U/L (12-37); Bilirubin, Total 0.6 mg/dL (0.1-1.0); Blood Urea Nitrogen 11 mg/dL (8-24); Bun/Creatinine Ratio 15.8 (12.0-20.0); CO2, Blood 38 mmol/L (21-32); Chloride, Blood 88 mmol/L (98-108); Globulin, Blood 3.6 g/dL (2.2-4.0); Glomerular Filtration Rate >60 (60-); Glucose, Blood 404 mg/dL (70-99); Potassium, Blood 3.3 mmol/L (3.5-5.5); Sodium, Blood 135 mmol/L (136-145); Total Protein, Blood 7.1 g/dL (6.4-8.2)
[2018-10-15] MEDS ORDERED: Kristalose20 GM PO (20:24)
== END 2018-10-14 20:06 | disposition home or self-care (01) ==
LOC: ER 17:30
PROVIDERS: Emergency Medicine
DX: K70.9 Alcoholic liver disease, unspecified (principal); F10.129 Alcohol abuse with intoxication, unspecified; E11.9 Type 2 diabetes mellitus without complications; Z79.4 Long term (current) use of insulin; F17.200 Nicotine dependence, unspecified, uncomplicated
CPT/HCPCS: 80053; 83690; 85025; 96374; 99283-25; G0480; J2405; J7030

== ENCOUNTER 2018-10-16 04:53 | Inpatient (IN) | payer OTHER ==
[~2018-10-16] VITALS: Ht 185.4 cm; Wt 66.8 kg
[~2018-10-16 04:53] MED LIST changes: +Kristalose20 GM PO
[2018-10-16] MEDS ORDERED: GABA600 PO (05:17)
[2018-10-16 06:36] LABS: BASOPHILS ABSOLUTE AUTO 0.04 K/mm3 (0.00-0.23); BASOPHILS PERCENT AUTO 1 % (0-2); EOSINOPHILS ABSOLUTE AUTO 0.24 K/mm3 (0.00-0.68); EOSINOPHILS PERCENT AUTO 3 % (0-6); Hematocrit 45.5 % (37.0-53.0); Hemoglobin 15.4 g/dL (13.5-17.5); IMMATURE GRAN ABSOLUTE AUTO 0.02 K/mm3 (0.00-0.10); IMMATURE GRAN PERCENT AUTO 0 % (0-1); LYMPHOCYTES ABSOLUTE AUTO 3.07 K/mm3 (0.84-5.20); LYMPHOCYTES PERCENT AUTO 43 % (21-46); MONOCYTES ABSOLUTE AUTO 0.69 K/mm3 (0.16-1.47); MONOCYTES PERCENT AUTO 10 % (4-13); Mean Corpuscular HGB 30.1 pg (26.0-34.0); Mean Corpuscular HGB Conc 33.8 g/dL (31.5-36.5); Mean Corpuscular Volume 89 fL (80-100); Mean Platelet Volume 11.5 fL (9.1-12.4); NEUTROPHILS ABSOLUTE AUTO 3.09 K/mm3 (1.96-9.15); NEUTROPHILS PERCENT AUTO 43 % (41-73); Platelet Count 146 K/mm3 (150-400); RDW Coefficient Variation 14.1 % (11.7-14.2); RDW Standard Deviation 45.9 fL (35.1-46.3); Red Blood Cell Count 5.11 M/mm3 (4.30-5.90); White Blood Cell Count 7.15 K/mm3 (4.00-11.30)
[2018-10-16 07:27] LABS: Alanine Aminotransfer (ALT/SGP 274 U/L (12-78); Albumin, Blood 3.8 g/dL (3.4-5.0); Alk Phos 297 U/L (50-136); Anion Gap 8 mmol/L (6-16); Aspartate Aminotrans (AST/SGOT 235 U/L (12-37); Bilirubin, Total 1.3 mg/dL (0.1-1.0); Blood Urea Nitrogen 16 mg/dL (8-24); Bun/Creatinine Ratio 21.1 (12.0-20.0); CO2, Blood 35 mmol/L (21-32); Calcium, Blood 9.5 mg/dL (8.5-10.1); Chloride, Blood 88 mmol/L (98-108); Creatinine, Blood 0.76 mg/dL (0.60-1.20); Globulin, Blood 3.7 g/dL (2.2-4.0); Glomerular Filtration Rate >60 (60-); Glucose, Blood 282 mg/dL (70-99); Sodium, Blood 131 mmol/L (136-145); Total Protein, Blood 7.5 g/dL (6.4-8.2)
[2018-10-16 09:18] LABS: Magnesium, Blood 1.9 mg/dL (1.6-2.4); Phosphorus, Blood 3.1 mg/dL (2.5-4.9)
[2018-10-16 10:21] LABS: U Amphetamine Screen Not Detected; U Barbituate Screen Not Detected; U Benzodiazapine Screen DETECTED; U Buprenorphine Screen Not Detected; U Cannabinoids Screen Not Detected; U Cocaine Screen Not Detected; U Methadone Screen Not Detected; U Methamphetamine Screen Not Detected; U Opiates Screen Not Detected; U Oxycodone Screen Not Detected; U Phencyclidine Screen Not Detected; U Propoxyphene Screen Not Detected
--- NOTE | 2018-10-16 11:15 | NUR ---
ASSUMED CARE OF PATIENT FROM CHRIS MARIE. ARRIVED VIA W/C WITH SECURITY. ALERT TO SELF, TRANSFERED FROM W/C TO BED WITH UNSTEADY GAIT. NEEDING TO REDIRECT. PATIENT HAVING VISUAL HALLUCINATIONS AND TOUCHING THINGS THAT AREN'T THERE. WILL MEDICATE PER EMAR AND CONTINUE TO MONITOR.
--- NOTE | 2018-10-16 12:39 | NUR ---
PT HAD CBG OF 454 AND WAS GIVEN [address] REYNA WAS NOTIFIED AND REQUESTED CBG TO BE RECHECKED AT 1330. WILL CONTINUE TO MONITOR.
--- NOTE | 2018-10-16 15:19 | NUR ---
RECHECKED BS AND IT WAS 124. WILL CONTINUE TO MONITOR
--- NOTE | 2018-10-16 17:15 | NUR ---
Shift Summary Orientation flunctuates from x1 to x3. Frequent redirection needed. 1-2 assist to the bathroom, unsteady gait and restlessness. Medicated per EMAR for agitation, anxiety, and elevated CIWA. No c/o of N/V/D. VSS. Bed alarm and non-skid socks on, bed in lowest position.
--- NOTE | 2018-10-16 18:30 | NUR ---
STUDENT HAD PT CARE TODAY, PLEASE REFER TO STUDENT NOTES FOR SHIFT SUMMARY.
[2018-10-17 04:54] LABS: Hematocrit 39.5 % (37.0-53.0); Hemoglobin 13.3 g/dL (13.5-17.5); Mean Corpuscular HGB 29.6 pg (26.0-34.0); Mean Corpuscular HGB Conc 33.7 g/dL (31.5-36.5); Mean Corpuscular Volume 88 fL (80-100); Mean Platelet Volume 11.9 fL (9.1-12.4); Platelet Count 90 K/mm3 (150-400); RDW Coefficient Variation 14.5 % (11.7-14.2); RDW Standard Deviation 46.4 fL (35.1-46.3); Red Blood Cell Count 4.49 M/mm3 (4.30-5.90); White Blood Cell Count 4.73 K/mm3 (4.00-11.30)
[2018-10-17 05:18] LABS: Anion Gap 6 mmol/L (6-16); Blood Urea Nitrogen 19 mg/dL (8-24); Bun/Creatinine Ratio 24.9 (12.0-20.0); CO2, Blood 33 mmol/L (21-32); Calcium, Blood 8.7 mg/dL (8.5-10.1); Chloride, Blood 96 mmol/L (98-108); Creatinine, Blood 0.76 mg/dL (0.60-1.20); Glomerular Filtration Rate >60 (60-); Glucose, Blood 384 mg/dL (70-99); Magnesium, Blood 1.9 mg/dL (1.6-2.4); Potassium, Blood 4.1 mmol/L (3.5-5.5); Sodium, Blood 135 mmol/L (136-145)
[2018-10-17] MEDS ORDERED: ZENPEP DR 15,01 EACH PO (05:54)
--- NOTE | 2018-10-17 06:45 | NUR ---
SHIFT SUMMARY PT KNEW HE WAS IN HOSPITAL BUT UNSURE OF DATE, TWO DAYS OFF. HAS BEEN FORGETFUL AND ASKS ABOUT THINGS THAT HAS HAPPENED 30 MIN AGO. HAS BEEN IMPULSIVE AT TIMES GETTING OOB WITHOUT CALLING FIRST. MEDICATED PER TYSON Cordon ATIVAN FOR ANXIETY. HE WAS ABLE TO SLEEP T/O NIGHT. CIWA SCORE HAS BEEN 2-4 AND MOSTLY RECENTLY SCORE OF ZERO. SAYS HE SEES FLASHES/FLICKERS OF LIGHT OCCASIONALLY BUT HE THINKS ITS FROM WHEN HE FELL PREVIOUSLY BEFORE BEING ADMITTED. HE ONLY WANTED 5 UNITS OF LANTUS INSTEAD OF 15. SBA TO BA. UNSTEADY ON FEET AT FIRST BUT SHIFT WENT ON HE GOT STEADY ON HIS FEET.
--- NOTE | 2018-10-17 16:01 | NUR ---
DR. GIVENS NOTIFIED OF HR >100'S. WILL CONTINUE TO MONITOR
--- NOTE | 2018-10-17 17:34 | NUR ---
Shift Summary A/O x 3. Pleasant and cooperative with care. Calls appropriately most times, occasionally forgetful. Easily redirectable. Frequently inquires about Ativan for anxiety and Oxycodone for pain, medicated per EMAR x 3 for anxiety and x 1 for pain. Gait is more steady today. Bed in lowest position and alarm on. Will continue to monitor.
--- NOTE | 2018-10-17 18:25 | NUR ---
STUDENT HAD PT CARE TODAY PLEASE REFER TO STUDENT NOTE FOR SHIFT SUMMARY.
--- NOTE | 2018-10-18 06:14 | NUR ---
SHIFT SUMMARY PT VERY ANXIOUS AND IRRITABLE. WANTING MULTIPLE THINGS TO EAT ONE AFTER ANOTHER. VOMITED IT ALL AFTER EATING THEN WANTED MORE TO EAT. HAD SOME CEREAL AND TOAST AFTER THAT AND IT STAYED DOWN. MEDICATED PER EMAR FOR ANXIETY X2 AND NAUSEA X1. FORGETFUL AND SETS OFF BED ALARM. STATED HE HAD SUICIDAL THOUGHTS AND HE HAD NOTHING TO LIVE FOR. SEEMS DEPRESSED ABOUT HIS SOCIAL SITUATION AT HOME. HE WAS ABLE TO SLEEP AFTER 2ND DOSE OF ATIVAN. BRIGHT CUTTER NOTIFIED OF SI THOUGHTS. WILL CONTINUE TO MONITOR AND PASS ON TO DAY RN.
--- NOTE | 2018-10-18 07:03 | NUR ---
ASSUME CARE OF PATIENT FROM PABLO MARIE. PATIENT IS SLEEPING, NO SIGNS OF AGITATION AT THIS TIME. NS @ 100 MLS/HR.
[2018-10-18 09:42] LABS: Anion Gap 8 mmol/L (6-16); Blood Urea Nitrogen 20 mg/dL (8-24); Bun/Creatinine Ratio 30.4 (12.0-20.0); CO2, Blood 28 mmol/L (21-32); Calcium, Blood 8.4 mg/dL (8.5-10.1); Chloride, Blood 100 mmol/L (98-108); Creatinine, Blood 0.66 mg/dL (0.60-1.20); Glomerular Filtration Rate >60 (60-); Glucose, Blood 290 mg/dL (70-99); Potassium, Blood 3.9 mmol/L (3.5-5.5); Sodium, Blood 136 mmol/L (136-145)
--- NOTE | 2018-10-18 17:18 | NUR ---
Shift Summary A/O x 4. Cooperative with care. Continues to be mildly anxious about his dad not answering the phone. Medicated for anxiety x 1 and pain x 2. Ambulated in hallway x 1, up in room and to the bathroom with 1 SBA. Also medicated for nausea x 2. CIWA scores have been 4 and under t/o shift. No acute changes this shift.
--- NOTE | 2018-10-18 18:16 | NUR ---
STUDENT HAD PT CARE PLEASE REFER TO STUDENT NOTE FOR SHIFT SUMMARY.
--- NOTE | 2018-10-19 04:00 | NUR ---
SHIFT SUMMARY: PT IS ALERT AND ORIENTED. PT IS CALM AND COOPERATIVE WITH CARE. PT CALLS APPROPRIATELY. PT IS INDEPENDENT IN THE ROOM. PT DENIES PAIN, NAUSEA, VOMITING, AND SOB. PT REPORTS BEING VERY TIRED, SLEPT THE ENTIRE SHIFT WHEN NOT DISTURBED. NO ACUTE CHANGES OR COMPLICATIONS OVERNIGHT. WILL REPORT TO DAY NURSE.
[2018-10-19 05:45] LABS: BASOPHILS ABSOLUTE AUTO 0.02 K/mm3 (0.00-0.23); BASOPHILS PERCENT AUTO 0 % (0-2); EOSINOPHILS ABSOLUTE AUTO 0.18 K/mm3 (0.00-0.68); EOSINOPHILS PERCENT AUTO 3 % (0-6); Hematocrit 37.4 % (37.0-53.0); Hemoglobin 12.6 g/dL (13.5-17.5); IMMATURE GRAN ABSOLUTE AUTO 0.02 K/mm3 (0.00-0.10); IMMATURE GRAN PERCENT AUTO 0 % (0-1); LYMPHOCYTES ABSOLUTE AUTO 2.31 K/mm3 (0.84-5.20); LYMPHOCYTES PERCENT AUTO 35 % (21-46); MONOCYTES ABSOLUTE AUTO 0.53 K/mm3 (0.16-1.47); MONOCYTES PERCENT AUTO 8 % (4-13); Mean Corpuscular HGB 29.6 pg (26.0-34.0); Mean Corpuscular HGB Conc 33.7 g/dL (31.5-36.5); Mean Corpuscular Volume 88 fL (80-100); Mean Platelet Volume 12.7 fL (9.1-12.4); NEUTROPHILS ABSOLUTE AUTO 3.48 K/mm3 (1.96-9.15); NEUTROPHILS PERCENT AUTO 53 % (41-73); Platelet Count 71 K/mm3 (150-400); RDW Coefficient Variation 15.4 % (11.7-14.2); RDW Standard Deviation 49.1 fL (35.1-46.3); Red Blood Cell Count 4.25 M/mm3 (4.30-5.90); White Blood Cell Count 6.54 K/mm3 (4.00-11.30)
[2018-10-19 06:19] LABS: Alanine Aminotransfer (ALT/SGP 89 U/L (12-78); Albumin, Blood 2.7 g/dL (3.4-5.0); Albumin/Globulin Ratio 0.8 (0.8-1.8); Alk Phos 174 U/L (50-136); Anion Gap 5 mmol/L (6-16); Aspartate Aminotrans (AST/SGOT 25 U/L (12-37); Bilirubin, Total 0.5 mg/dL (0.1-1.0); Blood Urea Nitrogen 17 mg/dL (8-24); Bun/Creatinine Ratio 29.4 (12.0-20.0); CO2, Blood 31 mmol/L (21-32); Chloride, Blood 101 mmol/L (98-108); Creatinine, Blood 0.58 mg/dL (0.60-1.20); Globulin, Blood 3.2 g/dL (2.2-4.0); Glomerular Filtration Rate >60 (60-); Glucose, Blood 179 mg/dL (70-99); Magnesium, Blood 1.6 mg/dL (1.6-2.4); Potassium, Blood 4.3 mmol/L (3.5-5.5); Sodium, Blood 137 mmol/L (136-145); Total Protein, Blood 5.9 g/dL (6.4-8.2)
[2018-10-19] MEDS ORDERED: Laxative Suppos10 MG PR (13:44)
[2018-10-19] MEDS ORDERED: ONE DAILY MUL400 MCG PO (13:44)
[2018-10-19] MEDS ORDERED: LORA1 PO (13:48)
--- NOTE | 2018-10-19 14:45 | NUR ---
DISCHARGE INSTRUCTIONS COMPLETED AND DISCUSSED WITH PT EXPRESSING UNDERSTANDING. FATHER AT BEDSIDE WELL TO [facility] TO INFORMATION. SPOKE WITH [facility] ABOUT A POSSIBLE BED FOR INPT RESIDENTIAL AND THEY STATED NO BEDS AVAILABLE AT THIS TIME. FATHER AND PT NOTIFIED THAT ITS RECOMMENDED THEY CALL [facility] EVERY DAY FOR BED AVAILABILITY. PT AMBULATING IN ROOM ON AND OFF TODAY AND ONCE INTO HALLWAY. TO [facility] VIA W/C WITH FATHER.
== END 2018-10-19 14:32 | disposition home or self-care (01) | DRG 641 ==
LOC: ER 04:53 → ERHOLD 09:00 → MEDS 09:00 → EDBEDREQ 10:31 → MEDS 11:11 → ENPENDDIS 10-19 12:18 → MEDS 10-19 14:32
PROVIDERS: Emergency Medicine; Hospitalist; Internal Medicine Endocrinology, Diabetes & Metabolism; ADMIT Hospitalist
DX: E51.2 Wernicke's encephalopathy (principal); K86.1 Other chronic pancreatitis; K21.9 Gastro-esophageal reflux disease without esophagitis; E11.69 Type 2 diabetes mellitus with other specified complication; F17.210 Nicotine dependence, cigarettes, uncomplicated; Z79.4 Long term (current) use of insulin; F10.20 Alcohol dependence, uncomplicated
CPT/HCPCS: 36415; 80048; 80053; 82140; 82947; 83735; 84100; 85025; 85027; 96365; 96366; 96375; 99285-25; G0480; J1650; J2060; J2405; J3411; J3475; J7042; J7050

== ENCOUNTER 2018-10-31 15:37 | Inpatient (IN) | payer OTHER ==
[~2018-10-31] VITALS: Ht 182.9 cm; Wt 61.0 kg
[~2018-10-31 15:37] MED LIST changes: +GABA600 PO; +Laxative Suppos10 MG PR; +ONE DAILY MUL400 MCG PO
[2018-10-31 16:41] LABS: Magnesium, Blood 4.1 mg/dL (1.6-2.4)
[2018-10-31 16:46] LABS: Alanine Aminotransfer (ALT/SGP 303 U/L (12-78); Albumin, Blood 3.5 g/dL (3.4-5.0); Albumin/Globulin Ratio 0.8 (0.8-1.8); Alk Phos 379 U/L (50-136); Anion Gap Unable to Calculate mmol/L (6-16); Aspartate Aminotrans (AST/SGOT 194 U/L (12-37); Blood Urea Nitrogen 29 mg/dL (8-24); Bun/Creatinine Ratio 9.4 (12.0-20.0); CO2, Blood 22 mmol/L (21-32); Calcium, Blood 10.6 mg/dL (8.5-10.1); Chloride, Blood <50 mmol/L (98-108); Creatinine, Blood 3.07 mg/dL (0.60-1.20); Globulin, Blood 4.4 g/dL (2.2-4.0); Glomerular Filtration Rate 23 (60-); Glucose, Blood 405 mg/dL (70-99); Sodium, Blood 126 mmol/L (136-145); Total Protein, Blood 7.9 g/dL (6.4-8.2)
[2018-10-31 17:03] LABS: Source, Urine Catheter
[2018-10-31 17:06] LABS: Bilirubin, Urine Neg (Neg); Blood, Urine 1+ (Neg); Glucose Qualitative, Urine 4+ (Neg); Ketones, Urine 1+ (Neg); Leukocyte Esterase, Urine Neg (Neg); Nitrite, Urine Neg (Neg); Protein, Urine 2+ (Neg); Specific Gravity, Urine 1.025 (1.003-1.022); Urobilinogen, Urine NORM (Normal)
[2018-10-31 17:21] LABS: Color, Urine Yellow (P-Yellow)
[2018-10-31 17:22] LABS: Appearance, Urine Hazy (Clear)
[2018-10-31 17:23] LABS: Bacteria Not Seen /hpf; Red Blood Cells, Urine 0-2 /hpf (0-2); Squamous Epithelial Cells Not Seen /hpf (Few); White Blood Cells, Urine 0-2 /hpf (0-5)
[2018-10-31] MEDS ORDERED: OXYC10TA19 PO (17:26)
[2018-10-31 17:29] LABS: U Amphetamine Screen Not Detected; U Barbituate Screen Not Detected; U Benzodiazapine Screen DETECTED; U Buprenorphine Screen Not Detected; U Cannabinoids Screen Not Detected; U Cocaine Screen Not Detected; U Methadone Screen Not Detected; U Methamphetamine Screen Not Detected; U Opiates Screen Not Detected; U Oxycodone Screen Not Detected; U Phencyclidine Screen Not Detected; U Propoxyphene Screen Not Detected
[2018-10-31] MEDS ORDERED: INSR10I SC (17:35)
[2018-10-31 19:06] LABS: BASOPHILS ABSOLUTE AUTO 0.03 K/mm3 (0.00-0.23); BASOPHILS PERCENT AUTO 0 % (0-2); EOSINOPHILS ABSOLUTE AUTO 0.02 K/mm3 (0.00-0.68); EOSINOPHILS PERCENT AUTO 0 % (0-6); Hematocrit 44.5 % (37.0-53.0); Hemoglobin 15.6 g/dL (13.5-17.5); IMMATURE GRAN ABSOLUTE AUTO 0.06 K/mm3 (0.00-0.10); IMMATURE GRAN PERCENT AUTO 0 % (0-1); LYMPHOCYTES ABSOLUTE AUTO 1.82 K/mm3 (0.84-5.20); LYMPHOCYTES PERCENT AUTO 11 % (21-46); MONOCYTES ABSOLUTE AUTO 1.16 K/mm3 (0.16-1.47); MONOCYTES PERCENT AUTO 7 % (4-13); Mean Corpuscular HGB 30.1 pg (26.0-34.0); Mean Corpuscular HGB Conc 35.1 g/dL (31.5-36.5); Mean Corpuscular Volume 86 fL (80-100); Mean Platelet Volume 12.5 fL (9.1-12.4); NEUTROPHILS ABSOLUTE AUTO 13.05 K/mm3 (1.96-9.15); NEUTROPHILS PERCENT AUTO 81 % (41-73); Platelet Count 207 K/mm3 (150-400); RDW Coefficient Variation 16.8 % (11.7-14.2); RDW Standard Deviation 51.5 fL (35.1-46.3); Red Blood Cell Count 5.18 M/mm3 (4.30-5.90); White Blood Cell Count 16.14 K/mm3 (4.00-11.30)
--- NOTE | 2018-10-31 20:00 | NUR ---
ED ADMIT AAT 1950 [facility]IA [facility] . AWAKE ORIENTED NEURO WNL. ESTEBAN 09/02. HANDS W/ MILD TREMORS. AND CIWA START. REPORTS NEED FOR HIS USUAL PAIN MED PER HOME USE AND REPORTED HE HAS RUN OUT OF PAIN MEDS AT HOME AND NOT SURE WHEN LAST TAKEN ON ANY OF HIS MEDS OR INSULIN. REPORTS NOT EATING AND HAD BEEN VOMITING AT HOME , DARK COLOR. GENERAL PAIN REPORTED AND EDUCATED ON ON TYPES OF MEDS TO BE USED FOR WITHDRAWL. AGREES TO TRY THIS . VS WNL . AND SOME ESCALATING OF ANXIETY AND REPORTS BEING VERY FEARFUL.REPORTS FOGGY FEELING OR CLOUDY FEELING OVER EYES. NOTED WHILE AWAKE AND ACCURATE READING OF OXIMETRY SAT FLUCUATES 86-94.PLACED 2L O2 ON AND NO FURTHER DROP/
[2018-10-31 20:59] LABS: Glucose, Blood 665 mg/dL (70-99)
--- NOTE | 2018-10-31 21:50 | NUR ---
LIBRIUM GIVEN AN HOUR APART WITH CIWA 13. SEEMS TO ASSIST IN RELAXING. PLACED CALL TO DR DE LA GARZA AT 2119 TO REPORT BLOOD SUGAR AND NO SLIDING COVERAGE ORDERED. ORDERS GIVEN FOR INSULIN AND WO LR. MD WANTED BANANA BAG AND LR BOLUS TO RUN AT SAME TIME. HE WILL PUT ORDERS IN. REMINDED MD THAT ANION GAP COULD NOT BE CALCULATED, AND STAFF SUGGESTED INSULIN GTT.NO ORDER FOR THAT./ VOIDING QS VERY DARK LUCERO URINE. MILD MORALEZ AND MORE RELAXED W/ LIBRIUM. LUNGS REMAIN CLEAR. FEW SIPS OF H20 AND DIET SPRITE. TOLERATED REPORTS LESS NAUSEA/
--- NOTE | 2018-10-31 23:00 | NUR ---
PLACED CALL TO DR DE LA GARZA BEFORE CBG RESULT LAB DRAW. READS HIGH AND WILL BE DRAWN SOON. STAFF WANTED TO TALK W/ DR DE LA GARZA BEFORE SHIFT CHANGE. ORDERS TX TO ICU ON INSULIN GTT. REPORT GIVEN TO CAMILLE AND WILL TX EMA/ FAIRLY CALM AND EXPRESSES UNDERSTANDING OF TX AND NEED TO WAIT FOR FURTHER MEDS FOR ANXIOUSNESS ICU STAFF WILL ASSESS. SR-ST/ AVERAGE. 100-117.
[2018-10-31 23:37] LABS: Glucose, Blood 559 mg/dL (70-99)
[2018-11-01 00:12] LABS: Anion Gap Unable to Calculate mmol/L (6-16); Blood Urea Nitrogen 34 mg/dL (8-24); Bun/Creatinine Ratio 14.4 (12.0-20.0); CO2, Blood >45 mmol/L (21-32); Calcium, Blood 7.6 mg/dL (8.5-10.1); Chloride, Blood 60 mmol/L (98-108); Creatinine, Blood 2.36 mg/dL (0.60-1.20); Glomerular Filtration Rate 31 (60-); Potassium, Blood 3.5 mmol/L (3.5-5.5); Sodium, Blood 127 mmol/L (136-145)
--- NOTE | 2018-11-01 02:51 | NUR ---
ASSUMING CARE AND PT TRANSFER RECEIVED PT REPORT FROM N[place], PT IS BEING TRANSFERED FROM PCU TO ICU DUE TO HYPERGLYCEMIA AND INSULIN GTT. PT ARRIVED TO THE UNIT VIA PCU BED AT APPROX 2359. PT IS ALERT AND ORIENTED AT THE TIME OF SRRIVAL TO THE UNIT. PT IS RECEIVING LR AT 150ML/HR AT THE TIME OF ARRIVAL TO UNIT PT BLOOD SUGAR WAS CHECKED WITH A RESULT OF APPROX 441. INSULIN GTT STARTED AT 1U/HR. PT IS REPORTING ABD PAIN AND HAS A HX OF CHRONIC PANCREATITIS. DR BOURGEOIS CALLED, ORDER RECEIVED FOR TYLENOL 650 AND ONE TIME ORGER OF TRAMADOL IF TYLENOL INEFFECTIVE. PT NPO AT THIS TIME DUE TO NAUSEA AND HYPERGLYCEMIA WITH INSULIN GTT. PT HR IS IN THE 90-100 RANGE, BP IS IN THE 90-100S SYSTOLIC WITH MAP GREATER THAN 65. PT IS ON 2L O2 VIA NC WITH SPO2 IN THE MID TO HIGH 90'S PT IS ABLE TO VOID USING THE URINAL. PT URINE IS LUCERO IN COLOR AND APPEARS CONCENTRATED. PT HAS VOIDED X2 WITH APPROX 200ML OUTPUT WITH EACH VOID. PT HAD A VERY SMALL SMEAR BM THAT WAS LIGHT BROWN AND HAD A MUCOUSY CONSISTANCY. ASSUMED CARE OF PT AT THE TIME OF ARRIVAL TO UNIT. WILL CONTINUE TO MONITOR.
[2018-11-01 03:32] LABS: Hematocrit 41.7 % (37.0-53.0); Hemoglobin 14.9 g/dL (13.5-17.5); Mean Corpuscular HGB 30.3 pg (26.0-34.0); Mean Corpuscular HGB Conc 35.7 g/dL (31.5-36.5); Mean Corpuscular Volume 85 fL (80-100); Mean Platelet Volume 12.5 fL (9.1-12.4); Platelet Count 169 K/mm3 (150-400); RDW Coefficient Variation 15.9 % (11.7-14.2); RDW Standard Deviation 48.4 fL (35.1-46.3); Red Blood Cell Count 4.91 M/mm3 (4.30-5.90); White Blood Cell Count 16.39 K/mm3 (4.00-11.30)
[2018-11-01 03:52] LABS: Alanine Aminotransfer (ALT/SGP 244 U/L (12-78); Albumin, Blood 2.8 g/dL (3.4-5.0); Albumin/Globulin Ratio 0.8 (0.8-1.8); Alk Phos 305 U/L (50-136); Aspartate Aminotrans (AST/SGOT 163 U/L (12-37); Blood Urea Nitrogen 29 mg/dL (8-24); Bun/Creatinine Ratio 14.8 (12.0-20.0); Chloride, Blood 67 mmol/L (98-108); Creatinine, Blood 1.96 mg/dL (0.60-1.20); Globulin, Blood 3.6 g/dL (2.2-4.0); Glomerular Filtration Rate 39 (60-); Glucose, Blood 266 mg/dL (70-99); Potassium, Blood 3.4 mmol/L (3.5-5.5); Sodium, Blood 128 mmol/L (136-145); Total Protein, Blood 6.4 g/dL (6.4-8.2)
[2018-11-01 03:59] LABS: Anion Gap Unable to Calculate mmol/L (6-16); CO2, Blood >45 mmol/L (21-32)
--- NOTE | 2018-11-01 06:32 | NUR ---
SHIFT SUMAMRY NOTE PT REMAINS ALERT AND ORIENTED, THOUGH SPEECH REMAINS SLURRED AT TIMES. PT REMAINS ON INSULIN GTT AT 1 UNIT/HR AT THIS TIME. PT HAD CO2 GREATER THAN [address] BOURGEOIS CALLED AND INFORMED OF PT ELEVATED CO2 AND OTHER LABS. ORDERS RECEIVED PT PROVIDE 1L NS BOLUS AND PERFORM BMP LAB DRAW AT 0900. ORDERES ENTERED RECEIVED. PT WAS CHANGED TO D5 1/2 NS AT 100ML/HR WHEN CBG DECREASED TO LESS THAN 250. LR AT 150ML/HR DC'D. AT THIS TIME PT IS RECEIVING D5 1/2 NS AT 100ML/HR AND INSULIN GTT AT 1 UNIT/HR. PT CONTNUES TO HAVE CONCENTRATED APPEARING URINE WITH VOIDS. PT BP IS STABLE IN THE 100'S SYSTOLIC RANGE AT THIS TIME. HR IS IN THE 80'S RANGE AND REMAINS SINUS. PT REMAINS ON 2L O2 VIA NC WITH SPO2 IN THE HIGH 90'S. PT HAS HAD NO FURTHER COMPLAINTS OF PAIN AFTER ADIMINSTRATION OF OXYCODONE 5MG. WILL REPORT OFF TO ONCOMING DAY SHIFT NURSE.
--- NOTE | 2018-11-01 07:46 | NUR ---
CARE ASSUMED CARE AND REPORT ASSUMED FROM CAMILLE MARIE. PT SLEEPING BUT EASILY AROUSABLE. DENIES PAIN AT THIS TIME BUT COMPLAINS OF NAUSEA. ZOFRAN 4 MG IVP GIVEN; WILL RE EVALUATE. VSS. NSR, HR 80S AND BP WNL. SPO2 99% ON 2L NC. LUNG SOUNDS CLEAR. AFEBRILE AT THIS TIME, T 97.8. INSULIN GTT INFUSING AT 2 UNITS/HR WITH D5 1/2 NS INFUSING AT 100 ML/HR. PT TO CONTINUE INSULIN GTT AT THIS TIME PER NIGHT RN PER MD. POTASSIUM REPLACED THIS AM. PT REQUESTING TO CONTINUE SLEEPING. WILL CONTINUE TO MONITOR.
[2018-11-01 09:41] LABS: Blood Urea Nitrogen 28 mg/dL (8-24); Bun/Creatinine Ratio 16.4 (12.0-20.0); Calcium, Blood 7.5 mg/dL (8.5-10.1); Chloride, Blood 74 mmol/L (98-108); Creatinine, Blood 1.71 mg/dL (0.60-1.20); Glomerular Filtration Rate 45 (60-); Glucose, Blood 225 mg/dL (70-99); Potassium, Blood 3.2 mmol/L (3.5-5.5); Sodium, Blood 129 mmol/L (136-145)
[2018-11-01 10:05] LABS: Anion Gap Unable to Calculate mmol/L (6-16)
[2018-11-01 10:06] LABS: CO2, Blood >45 mmol/L (21-32)
--- NOTE | 2018-11-01 13:13 | NUR ---
REASSESSMENT PT REMAINS IN BED WITH NAUSEA AND C/O PAIN. BEFORE EVEN LEAVING ROOM TO OBTAIN PAIN MEDS, PT WAS FAST ALSEEP AND SNORING. VSS. BANANA BAG INFUSING PER ORDER. MIV CHANGED TO NS AND WILL INFUSE AFTER BANANA BAG. POTASSIUM REPLACEMENT INFUSING AT THIS TIME. INSULIN GTT AT 1 UNITS/HR. WILL CONTINUE TO MONITOR.
--- NOTE | 2018-11-01 18:49 | NUR ---
SHIFT SUMMARY PT SLEPT OFF/ON MOST OF DAY. CIWA RANGED FROM 7-13; ATIVAN GIVEN NEEDED. OXYCODONE GIVEN 2X PER PT REQUEST. WHILE TALKING WITH PT, HE STATED HE HAD BEEN AT [facility] A FEW DAYS AGO TO OBTAIN HELP TO STOP DRINKING ALCOHOL. HE BECAME DIZZY AND THE STAFF FROM [facility] BROUGHT HIM HERE FOR ACUTE SYMPTOMS. BANANA BAG GIVEN DURING SHIFT. MIV FLUID CHANGED FROM D5 1/2 NS TO 0.9% NS WITH INSULIN GTT INFSUING ENTIRE SHIFT. LATE IN AFTERNOON, BLOOD SUGAR DROPPED TO 84; MD ALTMAN NOTIFIED AND MIV FLUID CHANGED TO D5 0.9 NS AT 150 ML/HR. OXYCODONE GIVEN FOR PAIN. WILL GIVE BEDSIDE, HANDOFF REPORT TO REGGIE MARIE.
--- NOTE | 2018-11-01 19:52 | NUR ---
[place]ocke of Care: Patient drowsy, but awake, sitting upright in bed watching tv. Oriented to self, event, place, confused to time/date. C/o back pain, effectively managed with prn oxycodone at this time, will continue to monitor and treat as indicated. Calm and cooperative staff, although slightly impulsive when wanting to stand to use urinal. CIWA-13 at this time, prn Ativan 1mg given, will monitor CIWA and give prn medications as indicated. Bed-alarm turned on for safety. Patient has used call light for assistance. Insulin gtt at 1u/hr, CBG-102, will monitor q1hr. D5%-NS at 150ml/hr. X2 peripheral IV's patent and intact. Will continue to monitor for pain, safety, comfort.
[2018-11-02 04:11] LABS: BASOPHILS ABSOLUTE AUTO 0.02 K/mm3 (0.00-0.23); BASOPHILS PERCENT AUTO 0 % (0-2); EOSINOPHILS ABSOLUTE AUTO 0.03 K/mm3 (0.00-0.68); EOSINOPHILS PERCENT AUTO 0 % (0-6); Hematocrit 38.9 % (37.0-53.0); Hemoglobin 13.1 g/dL (13.5-17.5); IMMATURE GRAN PERCENT AUTO 1 % (0-1); LYMPHOCYTES PERCENT AUTO 15 % (21-46); MONOCYTES ABSOLUTE AUTO 0.85 K/mm3 (0.16-1.47); MONOCYTES PERCENT AUTO 6 % (4-13); Mean Corpuscular HGB 29.8 pg (26.0-34.0); Mean Corpuscular HGB Conc 33.7 g/dL (31.5-36.5); Mean Corpuscular Volume 88 fL (80-100); Mean Platelet Volume 12.7 fL (9.1-12.4); NEUTROPHILS ABSOLUTE AUTO 10.42 K/mm3 (1.96-9.15); NEUTROPHILS PERCENT AUTO 78 % (41-73); Platelet Count 114 K/mm3 (150-400); RDW Coefficient Variation 16.3 % (11.7-14.2); RDW Standard Deviation 52.2 fL (35.1-46.3); White Blood Cell Count 13.42 K/mm3 (4.00-11.30)
[2018-11-02 04:43] LABS: Alanine Aminotransfer (ALT/SGP 172 U/L (12-78); Albumin, Blood 2.6 g/dL (3.4-5.0); Albumin/Globulin Ratio 0.8 (0.8-1.8); Alk Phos 227 U/L (50-136); Anion Gap 3 mmol/L (6-16); Aspartate Aminotrans (AST/SGOT 124 U/L (12-37); Bilirubin, Total 1.9 mg/dL (0.1-1.0); Blood Urea Nitrogen 18 mg/dL (8-24); Bun/Creatinine Ratio 14.4 (12.0-20.0); CO2, Blood 42 mmol/L (21-32); Calcium, Blood 7.7 mg/dL (8.5-10.1); Chloride, Blood 90 mmol/L (98-108); Creatinine, Blood 1.25 mg/dL (0.60-1.20); Globulin, Blood 3.4 g/dL (2.2-4.0); Glomerular Filtration Rate >60 (60-); Glucose, Blood 82 mg/dL (70-99); Potassium, Blood 3.5 mmol/L (3.5-5.5); Sodium, Blood 135 mmol/L (136-145)
--- NOTE | 2018-11-02 06:29 | NUR ---
Shift Summary: Patient slept on/off throughout shift. Continues to be calm/cooperative with staff, but not using call-light for assistance. Multiple attempts to get out of bed to use urinal. Insulin gtt titrated between 0-1.5 u/hr throughout shift, blood sugars 80's-120's. D5%-NS infusing without difficulty. Peripheral IV's x2 patent and intact. VSS, O2- 98-100% on RA or 2L/NC while sleeping. Will continue to monitor until report to day shift RN.
[2018-11-02 08:15] LABS: Glucose (ISTAT POC) 146 mg/dL (70-99)
--- NOTE | 2018-11-02 08:21 | NUR ---
PT AWAKE, RESTLESS, SOMEWHAT AGITATED. CIWA 16; ATIVAN 2MG GIVEN FOR AGITATION. PT ORIENTED TO SELF, PLACE. STATES MONTH IS SEPTEMBER. INSULIN GTT WAS TURNED OFF ON CDL SERVICE TECHNICIAN. D5NS DC'D PER ORDERS. DR VILLASEÑOR IN TO SEE PT; SEE NEW ORDERS. ADA MAYRA ORDERED. PT COUGHS ON LIQUIDS; WILL ASK ABOUT SWALLOW EVAL.
--- NOTE | 2018-11-02 13:12 | NUR ---
PT AWOKE FROM NAP IN ACUTE PANIC/DELIRIUM, OOB PULLING ON IV AND LINES, AGRESSIIVE W STAFF; GRABING, PUSHING, YELLING. PT REDIRCETED TO BED AFTER 5MIN AND CODE RON. ATIVAN 4MG IVP GIVEN. DR VILLASEÑOR CALLED; PRECEDEX GTT ORDERED
--- NOTE | 2018-11-02 15:10 | NUR ---
PT BP TRENDING DOWN, PT SLEEPING, AROUSES TO VOICE. PRECEDEX HAD BEEN STARTED AT 0.3MCG; PLACED ON HOLD FOR HYPOTENSION. DR VILLASEÑOR CALLED. 1L BOLUS NS STARTED PER ORDERS. PT OOB CONFUSED; USED BEDSIDE COMMODE, REDIRECTED BACK TO BED. BP 106/65 NOW; RESPONDING WELL TO FLUIDS.
--- NOTE | 2018-11-02 19:16 | NUR ---
PT'S BP REMAINED LABILE T/O THE SHIFT, AND REMAINED HYPOTENSIVE W MAP RANGING FROM 40'S TO 70'S. 1LITER NS BOLUS GIVEN W GOOD EFFECT. PRECEDEX GTT STARTED AGAIN AT 0.1MCG AT 1800 AFTER BP HAD BEEN STABLE FOR 1HR; BP REMAINS STABLE. PT CONFUSED AT TIMES AND VERY COHERENT AT OTHERS; CIWA SCORE VERY LABILE WELL. THIS EVENING PT USED CALL LIGHT APPROPRIATELY AND ASKED FOR SOMETHING TO DRINK, PAIN MEDS FOR CHRONIC ABD PAIN, AND ATIVAN FOR W/D SYMPTOMS. PT GIVEN SMALL SIP OF WATER AND TOLERATED FLUIDS WELL THIS TIME WITHOUT COUGHING ( HE DID THIS AM; PROMPTING A SWALLOW EVAL WHICH WAS NOT PREFORMED TODAY). OXYCODONE GIVEN WITH WATER, ATIVAN 1MG IV GIVEN. PT WAS NAUSEATED ONE TIME TODAY AT 1600; ZOFRAN GIVEN W GOOD EFFECT. [facility] CALLED AND TOLD STAFF THAT SHE WAS SAVING PT'S THINGS FOR HIM. [facility] CALLED AND SAID THEY WOULD GIVE HIM A BED WHEN DC'D FOR ALCOHOL WITHDRAWAL AND TREATMENT. PT STATED THAT HE VERY MUCH WANTED TO BE DC'D TO [facility], AND THAT HE WAS GRATEFUL THAT HIS THINGS WERE SAFE AT THE [facility].
--- NOTE | 2018-11-02 20:26 | NUR ---
ASSUMED PT CARE AT 1915 PT RESTING IN BED WITH LIGHTS DIM. EASILY AROUSABLE. ALERT AND ORIENTED TO PERSON, PLACE, TIME, AND FOLLOWING DIRECTIONS APPROPRIATELY. PT IS SLOW TO RESPOND, BUT OTHERWISE VERY PLEASANT AND COOPERATIVE WITH CARE. HE IS IMPULSIVE AND QUICK TO GET OUT OF BED WHEN HE NEEDS TO USE THE URINAL; THEREFORE, BED ALARM HAS BEEN SET. PT HAS BEEN INSTRUCTED TO USE CALL LIGHT, BUT DOESN'T UTILIZE APPROPRIATELY. CIWA SCORE OF 3 AT TIME OF ASSESSMENT. NO FAMILY OR FRIENDS AT BEDSIDE. PT APPEARS COMFORTABLE AT THIS TIME; ABLE TO MAKE HIS NEEDS KNOWN.
[2018-11-03 03:32] LABS: BASOPHILS ABSOLUTE AUTO 0.01 K/mm3 (0.00-0.23); BASOPHILS PERCENT AUTO 0 % (0-2); EOSINOPHILS ABSOLUTE AUTO 0.02 K/mm3 (0.00-0.68); EOSINOPHILS PERCENT AUTO 0 % (0-6); Hematocrit 35.3 % (37.0-53.0); Hemoglobin 11.6 g/dL (13.5-17.5); IMMATURE GRAN ABSOLUTE AUTO 0.03 K/mm3 (0.00-0.10); IMMATURE GRAN PERCENT AUTO 0 % (0-1); LYMPHOCYTES ABSOLUTE AUTO 1.45 K/mm3 (0.84-5.20); LYMPHOCYTES PERCENT AUTO 17 % (21-46); MONOCYTES ABSOLUTE AUTO 0.64 K/mm3 (0.16-1.47); MONOCYTES PERCENT AUTO 7 % (4-13); Mean Corpuscular HGB 30.3 pg (26.0-34.0); Mean Corpuscular HGB Conc 32.9 g/dL (31.5-36.5); NEUTROPHILS ABSOLUTE AUTO 6.65 K/mm3 (1.96-9.15); NEUTROPHILS PERCENT AUTO 76 % (41-73); RDW Coefficient Variation 17.1 % (11.7-14.2); RDW Standard Deviation 56.8 fL (35.1-46.3); Red Blood Cell Count 3.83 M/mm3 (4.30-5.90)
[2018-11-03 03:37] LABS: Mean Corpuscular Volume 92 fL (80-100); Mean Platelet Volume 12.5 fL (9.1-12.4); Platelet Count 93 K/mm3 (150-400)
[2018-11-03 03:52] LABS: Alanine Aminotransfer (ALT/SGP 132 U/L (12-78); Albumin, Blood 2.3 g/dL (3.4-5.0); Albumin/Globulin Ratio 0.8 (0.8-1.8); Alk Phos 245 U/L (50-136); Anion Gap 4 mmol/L (6-16); Aspartate Aminotrans (AST/SGOT 89 U/L (12-37); Bilirubin, Total 3.6 mg/dL (0.1-1.0); Blood Urea Nitrogen 14 mg/dL (8-24); Bun/Creatinine Ratio 18.4 (12.0-20.0); CO2, Blood 31 mmol/L (21-32); Calcium, Blood 7.8 mg/dL (8.5-10.1); Chloride, Blood 102 mmol/L (98-108); Creatinine, Blood 0.76 mg/dL (0.60-1.20); Globulin, Blood 2.9 g/dL (2.2-4.0); Glomerular Filtration Rate >60 (60-); Glucose, Blood 196 mg/dL (70-99); Phosphorus, Blood 1.5 mg/dL (2.5-4.9); Potassium, Blood 3.6 mmol/L (3.5-5.5); Sodium, Blood 137 mmol/L (136-145); Total Protein, Blood 5.2 g/dL (6.4-8.2)
--- NOTE | 2018-11-03 05:13 | NUR ---
END OF SHIFT SUMMARY PT HAS REMAINED ALERT AND ORIENTED WITH OCCASIONAL FORGETFULNESS, WHICH HE WAS IN NEED OF REMINDERS. CIWA'S HAVE BEEN HIGH 11; MEDICATED WITH LIBRIUM AND ATIVAN NEEDED. PT NOTED TO BE VERY AGITATED AT TIMES. ANXIOUS WELL; STATES HE HATES "BOTHERING US". REASSURED HE IS NOT A BOTHER JUST WANT TO ENSURE HE IS SAFE AND NOT GETTING OUT OF BED WITHOUT ASSISTANCE. EDUCATED AND REMINDED TO USE CALL LIGHT; PT UNABLE TO BE CONSISTENT WITH USE AND INSTEAD TRIES GETTING OVER THE SIDERAIL WHEN HE HAS TO USE THE URINAL; THEREFORE, BED ALARM HAS BEEN SET. CALL LIGHT IS WITHIN REACH. PRECEDEX HAS BEEN OFF ALL SHIFT.
--- NOTE | 2018-11-03 07:05 | NUR ---
ASSUMED CARE: RECEIVED REPORT FROM NOC RN. UPON ENTERING ROOM PT IS LYING FLAT. STATES HAVING PAIN D/T REFLUX AND STATES "PRETTY DARN HORRIBLE" WHEN ASKING HOW HE IS DOING THIS MORNING. EDUCATES PT TO SIT UP TO REDUCE REFLUX, HEAD OF BED IS ELEVATED APPROX 25 DEGREES. OFFERED TO ASSIST PT WITH THE URINAL PRIOR TO LEAVING THE ROOM, PT DENIES NEED, REINFORCED TO USE CALL LIGHT WHEN NEEDING TO USE URINAL. CALL LIGHT WITHIN REACH, PT USED PRIOR TO ENTERING ROOM REQUESTING JUICE. PT IS NOTED TO USE CONTROLS TO LAY HEAD OF BED FLAT AFTER LEAVING ROOM. SHORTLY AFTER LEAVING ROOM PT BED ALARM SOUNDS D/T PT ATTEMPTING TO GET OUT OF BED WITHOUT CALLING. PT STATNDS AT BEDSIDE WITH SBA TO USE URINAL. WILL CONTINUE TO MONITOR AND ASSESS FURTHER.
--- NOTE | 2018-11-03 11:15 | NUR ---
FALL RISK: PT HAS BEEN EDUCATED ON FALL RISK AND USING CALL LIGHT PRIOR TO ATTEMPTING TO GET OUT OF BED. PT HAS USED CALL LIGHT TO ASK FOR MEDICATIONS OR JUICE, BUT WILL NOT USE PRIOR TO GETTING UP TO USE URINAL. BED ALARM ON. WILL CONTINUE TO REINFORCE TO USE CALL LIGHT.
--- NOTE | 2018-11-03 14:49 | NUR ---
OUTBURST: PT SETS OFF BED ALARM AND BEGINS PULLING AT THE LINES AND CORDS. WHEN THIS RN ENQUIRES TO WHAT THE PT IS DOING AND HIS INTENTIONS PT STATES HE'S GOING TO WALK AROUND, PT IS EDUCATED THAT HE IS NOT STRONG ENOUGH OR STABLE ENOUGH TO BE UP WALKING AROUND AT THIS TIME. PT DECIDES HE IS GOING TO USE THE URINAL. PT BEGINS PULLING HIS PANT LEG UP WHEN THIS RN ASKS WHAT HE IS DOING HE STATES VERY LOUDLY "I'M PEEING" THIS RN ATTEMPTES TO GET PT TO PULL HIS PANTS DOWN AND PT LOUDLY TELLS THIS RN NO AND THAT HE IS GOING TO PEE. PT ENDS UP URINATING ALL OVER THE FLOOR AND FOOT. PT STATES "I GUESS I FORGOT HOW TO PEE" AND SITS ON THE BED. PANTS AND SOCKS ARE REMOVED AND PT BEGINS TO WIPE HIS LEGS WITH HIS GOWN. HOUSEKEEPING ARIVES TO THE ROOM TO CLEAN UP URINE, BLANKET IS PUT ON THE BED AND PT IS INSTRUCTED TO PLACE HIS LEGS ON THE BLANKET AND WILL BE ASSISTED IN BEING CLEANED UP. 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 PT YELLS OUT WHILE PLACING HIS LEGS AND FEET ON THE BLANKET LAIED OUT ON HE BED "FINE I'LL JUST STAY IN MY PISS PANTS". PT CONTINUES TO YELL SEVERAL MORE TIMES WHILE ATTEMPTING TO ASSIST IN CLEANING UP. MEDICATION PROVIDED.
--- NOTE | 2018-11-03 17:39 | NUR ---
SHIFT SUMMARY: PT HAS BEEN VERY IMPULSIVE T/O THE DAY. CONTINUED TO EDUCATE AND REDIRECT PT TO USE CALL LIGHT FOR SAFETY, BUT PT CONTINUES TO ATEMPT TO GET UP INDEPENDENTLY. PT HAS ONLY EATEN A BITE OR TWO OF EACH OF HIS MEALS STATING HE IS UNABLE TO D/T HIS THROAT. PT MEDICATED FOR REFLUX PER ORDERS, BUT DOES NOT APPEAR TO BE RESOLVING AT ALL. CIWA RANGES FROM 11 - >20, MEDICATED T/O THE DAY WITH ATAVAN AND LIBRIUM, PT WOULD SLEEP, BUT WOULD CONTINUE TO BE IMPULSIVE. CALL LIGHT HAS REMAINED IN BED. BED IN LOWEST POSSITION AND BED ALARM ON. WILL CONTINUE TO MONITOR AND REPORT TO ON COMING RN.
--- NOTE | 2018-11-03 20:49 | NUR ---
ASSUMING CARE RECEIVED PT REPROT FROM FRANK JIMENEZ. PT IS ABLE TO ANSWER ORIENTATION QUESTIONS APPROPRIATELY AT THIS TIME, THOUGH IS DISORINETED TO DATE BY A COUPLE DAYS. PT IS SHAKY AT TIMES THOUGH IS ABLE TO STAND WITH MINOR ASISTANCE. PT HAS BEEN USING URINAL WHILE STANDING. URINE REMAINS DARK LUCERO. PT IS ABNLE TO REPOSITION SELF IN BED WITHOUT ASSISTANCE. PT IS ON ROOM AIR WITH CLEAR LUNGS, THOUGH DIMINISHED IN THE BASES. PT HAS A DRY COUGH. PT SPO2 IS IN THE HIGH 90'S. PT HR IS IN THE 80-90 RANGE AND APPEARS TO BE SINUS. PT BP IS IN THE 90-110 RANGE SYSTOLIC. BP APPEARS STABLE AT THIS TIME. PT IS RECEIVING NS AT 125ML/HR. PT IS IN ETOH WITHDRAWAL AT THIS TIME. PT IS REPORTING SOME AUDITORY AND VISUAL HALUCINATIONS AND IS MODERATELY ANXIOUS. PT IS IMPULSIVE AT TIMES AND BED ALARM REMAINS IN PLACE. PT PROVIDED 50MG LIBRIUM SHORTLY AFTER INITAIL ASSESSMENT DUE TO WITHDRAWAL SYMPTOMS. ASSUMED CARE OF PT AT THE TIME OF SHIFT REPORT. WILL CONTINUE TO MONITOR PT.
--- NOTE | 2018-11-03 23:41 | NUR ---
vital sign edit vital signs for 22:52 had spo2 of 84% charted in error. pt is in high 90's on room air. unable to edit charted spo2.
[2018-11-04 03:30] LABS: BASOPHILS ABSOLUTE AUTO 0.02 K/mm3 (0.00-0.23); BASOPHILS PERCENT AUTO 0 % (0-2); EOSINOPHILS ABSOLUTE AUTO 0.03 K/mm3 (0.00-0.68); EOSINOPHILS PERCENT AUTO 0 % (0-6); Hematocrit 35.6 % (37.0-53.0); Hemoglobin 11.9 g/dL (13.5-17.5); IMMATURE GRAN ABSOLUTE AUTO 0.05 K/mm3 (0.00-0.10); IMMATURE GRAN PERCENT AUTO 1 % (0-1); LYMPHOCYTES ABSOLUTE AUTO 1.93 K/mm3 (0.84-5.20); LYMPHOCYTES PERCENT AUTO 22 % (21-46); MONOCYTES ABSOLUTE AUTO 0.79 K/mm3 (0.16-1.47); MONOCYTES PERCENT AUTO 9 % (4-13); Mean Corpuscular HGB 30.1 pg (26.0-34.0); Mean Corpuscular HGB Conc 33.4 g/dL (31.5-36.5); Mean Corpuscular Volume 90 fL (80-100); Mean Platelet Volume 11.6 fL (9.1-12.4); NEUTROPHILS ABSOLUTE AUTO 6.03 K/mm3 (1.96-9.15); NEUTROPHILS PERCENT AUTO 68 % (41-73); Platelet Count 112 K/mm3 (150-400); RDW Coefficient Variation 16.4 % (11.7-14.2); RDW Standard Deviation 53.9 fL (35.1-46.3); Red Blood Cell Count 3.95 M/mm3 (4.30-5.90); White Blood Cell Count 8.85 K/mm3 (4.00-11.30)
[2018-11-04 03:50] LABS: Alanine Aminotransfer (ALT/SGP 104 U/L (12-78); Albumin, Blood 2.4 g/dL (3.4-5.0); Albumin/Globulin Ratio 0.8 (0.8-1.8); Alk Phos 234 U/L (50-136); Anion Gap 5 mmol/L (6-16); Aspartate Aminotrans (AST/SGOT 51 U/L (12-37); Bilirubin, Total 2.1 mg/dL (0.1-1.0); Blood Urea Nitrogen 9 mg/dL (8-24); Bun/Creatinine Ratio 13.9 (12.0-20.0); CO2, Blood 33 mmol/L (21-32); Calcium, Blood 8.2 mg/dL (8.5-10.1); Chloride, Blood 104 mmol/L (98-108); Creatinine, Blood 0.65 mg/dL (0.60-1.20); Globulin, Blood 3.2 g/dL (2.2-4.0); Glomerular Filtration Rate >60 (60-); Glucose, Blood 261 mg/dL (70-99); Phosphorus, Blood 1.3 mg/dL (2.5-4.9); Potassium, Blood 3.3 mmol/L (3.5-5.5); Sodium, Blood 142 mmol/L (136-145); Total Protein, Blood 5.6 g/dL (6.4-8.2)
--- NOTE | 2018-11-04 06:58 | NUR ---
SHIFT SUMMARY NTOE PT HS REMAIND ABLE TO ANSWER ORIENTATION QUESTIONS THROUGHOUT THE NIGHT. PT CIWA'S HAVE MAINTAINED INT HE MID TO HIGH TEENS THROUGH THE NIGHT. PT BP HAS REMAINED STABLE THROUGH THE NIGHT, HR HAS MAINTAINED IN THE 70-80'S RANGE. PT HAS SLEPT OFF AND ON THROUGH THE NIGHT. PT CONTINUES TO BE IMPULSIVE AND WILL STAND OUT OF BED TO USE URINAL FREQUENTLY WITHOUT USING CALL LIGHT. PT IS ABLE TO STAND WITH MINIMAL ASSISTANCE BUT REMAINS WEAK AND UNSTEADY AT TIMES. PT PROVIDED LIBRIUM 50MG X1 AND ATIVAN 2MG X2 THROUGH THE NIGHT. PT REMAINS ON NS AT 125ML/HR. WILL REPORT OFF TO [facility] DAY SHIFT NURSE.
--- NOTE | 2018-11-04 07:17 | NUR ---
ASSUMED CARE: RECEIVED REPORT FROM NOC RN. PT SLEEPING UPON ENTERING THE ROOM WITH EVEN CHEST RISE AND FALL. O2 SATURATION IS NOTED TO BE >92%. CIWA IS 0 D/T SLEEPING. UPON WAKING PT AND CIWA ASSESSMENT PT IS AN 11. PT C/O BURNING IN HIS THROAT. VITALS STABLE AT THIS TIME. WILL CONTINUE TO MONITOR AND ASSESS FURTHER. BED IN LOWEST POSSITION AND CALL LIGHT IN REACH.
--- NOTE | 2018-11-04 18:19 | NUR ---
SHIFT SUMMARY; NO ACUTE CHANGES T/O THE DAY CIWA HAS BEEN BETWEEN 8-15 WHILE AWAKE. PT CONTINEUS TO SET OFF THE BED ALARM WHEN GETTING UP TO USE THE URINAL, BUT HAS BEEN MORE CONSIOUS ABOUT STATING WHILE RN IS IN THE ROOM NEED TO USE THE URINAL. VSS T/O THE DAY. STILL C/O ESOPHAGEAL BURNING, MEDICATED ORDERED. CALL LIGHT IN REACH, BUT PT HAS NOT USED AT ALL TODAY. BED IN LOWEST POSSITION AND BED ALARM ON. WILL CONTINUE TO MONITOR AND REPORT TO ON COMING RN.
--- NOTE | 2018-11-04 19:25 | NUR ---
ASSESSMENT/ASSUMED CARE PT LYING ON RIGHT SIDE. OPENS EYES AND FOLLOWS INSTRUCTIONS EASILY. C/O PAIN TO THROAT, STATES,"IT IS JUST A CONSTENT BURNING". PT TAKING SIPS CLEAR LIQUIDS BUT C/O BURING WITH EACH SIP. LUNGS CLEAR ON ROOMAIR. RESP EVEN AND NONNLABORED. PT C/O ANXIETY AND REQUESTS MEDS. CIWA 7, MED WITH LIBRIUM. HEART RATE REGULAR, BP STABLE. NO EDEMA. BT+ TENDER. DENIES N/V. IV TO LEFT UPPER ARM INFILTATED, DC'D INTACT. NEW IV TO BE STARTED BY CHRIS JEFFERSON RN. PT MOVING AND TURNING SELF IN BED. BED ALARM ON.
--- NOTE | 2018-11-04 20:54 | NUR ---
HS MEDS BLOOD GLUCOSE 183, NO SLIDING SCALE INSULIN GIVEN. LANTUS 10 UNITS GIVEN. PT TOOK NEUTRA PHOS WITH SMALL AMT WATER THAN C/O PAIN TO THROAT AND COUGHED UP ABOUT 10ML BILE COLORED FLUID.
--- NOTE | 2018-11-04 23:53 | NUR ---
REASSESSMENT PT AWAKE. UP TO BATHROOM WITH STANDBY ASSIST FOR LINES. VOIDED AND HAD BROWN MED STOOL. PT BACK TO BED C/O ANXIETY AND PAIN. MED WITH LIBRIUM AND TYLENOL. VSS. CIWA 7.
--- NOTE | 2018-11-05 02:32 | NUR ---
SNACK PT AWAKE. UP TO BEDSIDE TO VOID. CIWA 11, PT REQUESTED ATIVAN AND MAALOX, BOTH GIVEN. PT CONT TO C/O ANXIETY 30 MIN AFTER ATIVAN GIVEN. MED WITH LIBRIUM. PT REQUESTING SANDWICH AND CHEESE. REMINDED PT THAT HE IS ON A PUREED DIET. YOGURT GIVEN, PT ATE 100%.
--- NOTE | 2018-11-05 03:14 | NUR ---
REASSESSMENT/JESSIEWA PT AWAKE. LAB HERE. PT STATES,"I WANT TO GO OUT AND SMOKE. IF I CAN'T GO OUT I NEED SOME MORE ATIVAN OR I'M GOING TO LOSE IT". JESSIEWA 14 PT MED WITH ATIVAN 2 MG. PT SITTING ON EDGE OF BED REQUESTED YOGURT GIVEN, PT ATE 100%
[2018-11-05 03:28] LABS: BASOPHILS ABSOLUTE AUTO 0.03 K/mm3 (0.00-0.23); BASOPHILS PERCENT AUTO 0 % (0-2); EOSINOPHILS ABSOLUTE AUTO 0.06 K/mm3 (0.00-0.68); EOSINOPHILS PERCENT AUTO 1 % (0-6); Hematocrit 32.2 % (37.0-53.0); Hemoglobin 10.6 g/dL (13.5-17.5); IMMATURE GRAN ABSOLUTE AUTO 0.06 K/mm3 (0.00-0.10); IMMATURE GRAN PERCENT AUTO 1 % (0-1); LYMPHOCYTES PERCENT AUTO 24 % (21-46); MONOCYTES ABSOLUTE AUTO 1.06 K/mm3 (0.16-1.47); MONOCYTES PERCENT AUTO 14 % (4-13); Mean Corpuscular HGB Conc 32.9 g/dL (31.5-36.5); Mean Corpuscular Volume 91 fL (80-100); Mean Platelet Volume 10.9 fL (9.1-12.4); NEUTROPHILS ABSOLUTE AUTO 4.36 K/mm3 (1.96-9.15); NEUTROPHILS PERCENT AUTO 59 % (41-73); Platelet Count 114 K/mm3 (150-400); RDW Coefficient Variation 16.6 % (11.7-14.2); RDW Standard Deviation 54.9 fL (35.1-46.3); Red Blood Cell Count 3.53 M/mm3 (4.30-5.90); White Blood Cell Count 7.37 K/mm3 (4.00-11.30)
[2018-11-05 03:32] LABS: Anion Gap 5 mmol/L (6-16); Blood Urea Nitrogen 10 mg/dL (8-24); Bun/Creatinine Ratio 18.3 (12.0-20.0); CO2, Blood 29 mmol/L (21-32); Calcium, Blood 7.5 mg/dL (8.5-10.1); Chloride, Blood 106 mmol/L (98-108); Creatinine, Blood 0.55 mg/dL (0.60-1.20); Glomerular Filtration Rate >60 (60-); Glucose, Blood 229 mg/dL (70-99); Phosphorus, Blood 1.5 mg/dL (2.5-4.9); Potassium, Blood 3.5 mmol/L (3.5-5.5); Sodium, Blood 140 mmol/L (136-145)
--- NOTE | 2018-11-05 04:03 | NUR ---
NEW ORDERS DR GONZALEZ NOTIFIED REGARDING PHOS 1.5, REVIEWED LABS. NEUTROPHOS CHANGED TO QID. ALSO REVIEWED OXYCODONE ORDER AND CHANGED TO QID PRN
--- NOTE | 2018-11-05 05:09 | NUR ---
SHIFT SUMMARY PT AWAKE MOST OF THE NIGHT. MED WITH LIBRIUM AND ATIVAN FOR CIWA 7-14. C/O THROAT AND ABD PAIN "BURNING". PT TAKING TYLENOL AND MAALOX. PT ATE FOUR YOGURTS AND FIVE JELLOS DURING THE NIGHT. BED ALARM ON. PT USING CALL LIGHT AT TIMES. NEW IV PLACED DURING THE NIGHT 20G TO RIGHT AC, NS AT 125 ML/HR INFUSING. PT STANDS FOR VOID, HAD MEDIUM STOOL DURING THE NIGHT. REPORT TO ON COMING NURSE
--- NOTE | 2018-11-05 07:30 | NUR ---
ASSUMED CARE OF PATIENT; SEE ASSESSMENT CHARTING FOR DETAILS. PATIENT ALERT AND ORIENTED; PAIN REDUCED AT PRESENT (PAIN MED. GIVEN AT 0530). REMAINS ANXIOUS AND "NEEDY"; CHRONICALLY COMPLAINS; NEGATIVE ATTITUDE. CIWA ELEVATED BUT NOT UNDUE. STATES HE HAS A HARD TIME SEEING WITHOUT HIS GLASSES; MISPLACES CALL LIGHT AND BED CONTROLLER FREQUENTLY. ON PUREED DIET D/T DIFF. WITH SWALLOWING; HEARTBURN PRESENT AND DISCOMFORT WITH SWALLOWING; PILLS CRUSHED BUT CAPSULES SWALLOWED DOWN WITH MILK; REFUSED MED. IN APPLESAUCE. VOIDS MOD. AMOUNTS OF LUCERO COLORED URINE. LOWGRADE FEVER OF 99.6; C/O FEELING COLD AND WANTING MORE BLANKETS. RN ENCOURAGED CDB AND EXPLAINED FEVER WILL INCREASE IF FURTER BLANKETS PLACED. PCU STATUS; AWAITING BED. IVF INFUSING WITH NS AT 125ML/HR.
--- NOTE | 2018-11-05 08:00 | NUR ---
CBG 244; 2UNITS REGULAR INSULIN PER SS COVERAGE.
--- NOTE | 2018-11-05 08:50 | NUR ---
PATIENT ASSIGNED ROOM 11 FROM PCU.
--- NOTE | 2018-11-05 09:00 | NUR ---
SPEECH THERAPIST HERE; RECOMMENDS GI CONSULT TO EVAL. ESOPHAGUS MORE THOROUGHLY; NOTES REDNESS AND PAIN/DIFF. SWALLOWING. DIET ADVANCED TO [facility]. SOFT BUT PATIENT WILL REQUIRE SUPERVISION.
--- NOTE | 2018-11-05 09:20 | NUR ---
CONTACTED RAUL PUGH RN TO GIVE REPORT ON PATIENT.
--- NOTE | 2018-11-05 09:45 | NUR ---
REPORT TO RAUL ALLEN RN.
--- NOTE | 2018-11-05 10:00 | NUR ---
TRANSFERRED TO PCU, ROOM 11, VIA W/C; BELONGINGS, CHART AND MEDS. WITH PATIENT.
--- NOTE | 2018-11-05 10:29 | NUR ---
PT ARRIVED TO PCU 11 VIA BED FROM ICU, REPORT OBTAINED FROM NINO MARIE. PT IMMEDIATELY IS ASKING FOR PAIN MEDS, STATES HIS THROAT HURTS, HE CAN'T SWALLOW AND THAT MAKES HIM ANGRY. USED A FLASHLIGHT AND VISUALIZED HIS THROAT IS VERY RED, WITH TROLLEY CAR OPERATOR AREAS IN THE MIDDLE, CALL TO DR. VILLASEÑOR FOR A GI COCKTAIL FOR COFORT, SHE WILL ASSESS HIM WHEN SHE COMES TO SEE HIM. HE IS A/OX3, IRRITABLE. STATES HE DOESN'T FEEL LIKE HE IS GETTING BETTER, LUNGS ARE CLEAR, ON R/A, RESP EVEN AND UNLABORED, NO COUGH NOTED, HRR, TELE IN PLACE RUNNING SR PER MONITOR, SEE STRIP, NO EDEMA NOTE, PPP+2, CAP REFILL <3SEC, VS STABLE, AFEBRILE, IV SITE IS CLEAR AND PATENT, INFUSING NS ORDERED, BTX4, ABD FLAT SOFT NONTENDER, VOIDS WITHOUT DIFF, SKIN PALE, MAEW, BRUCE, CALL LIGHT IN REACH.
--- NOTE | 2018-11-05 14:15 | NUR ---
PT RESTING WHEN LEFT ALONE, IS VERY IRRITABE. NO ACUTE CHANGES CALL LIGHT IN REACH.
--- NOTE | 2018-11-05 18:25 | NUR ---
PT SLEPT PRETTY HARD MOST OF THE AFTERNOON, WOKE HIM UP FOR HIS MEDICATIONS. ASKING FOR PAIN MEDS. THIS WAS GIVEN. NO ACUTE CHANGES THIS SHIFT, CALL LIGHT IN REACH.
[2018-11-06 04:08] LABS: BASOPHILS ABSOLUTE AUTO 0.01 K/mm3 (0.00-0.23); BASOPHILS PERCENT AUTO 0 % (0-2); EOSINOPHILS ABSOLUTE AUTO 0.06 K/mm3 (0.00-0.68); EOSINOPHILS PERCENT AUTO 1 % (0-6); Hematocrit 29.8 % (37.0-53.0); Hemoglobin 9.9 g/dL (13.5-17.5); IMMATURE GRAN ABSOLUTE AUTO 0.08 K/mm3 (0.00-0.10); IMMATURE GRAN PERCENT AUTO 2 % (0-1); LYMPHOCYTES ABSOLUTE AUTO 2.01 K/mm3 (0.84-5.20); LYMPHOCYTES PERCENT AUTO 37 % (21-46); MONOCYTES PERCENT AUTO 20 % (4-13); Mean Corpuscular HGB 30.6 pg (26.0-34.0); Mean Corpuscular HGB Conc 33.2 g/dL (31.5-36.5); Mean Corpuscular Volume 92 fL (80-100); NEUTROPHILS ABSOLUTE AUTO 2.13 K/mm3 (1.96-9.15); NEUTROPHILS PERCENT AUTO 40 % (41-73); Platelet Count 149 K/mm3 (150-400); RDW Coefficient Variation 16.4 % (11.7-14.2); RDW Standard Deviation 54.4 fL (35.1-46.3); Red Blood Cell Count 3.24 M/mm3 (4.30-5.90); White Blood Cell Count 5.39 K/mm3 (4.00-11.30)
[2018-11-06 04:22] LABS: Anion Gap 4 mmol/L (6-16); Blood Urea Nitrogen 10 mg/dL (8-24); Bun/Creatinine Ratio 14.2 (12.0-20.0); CO2, Blood 35 mmol/L (21-32); Calcium, Blood 7.6 mg/dL (8.5-10.1); Chloride, Blood 101 mmol/L (98-108); Creatinine, Blood 0.71 mg/dL (0.60-1.20); Glomerular Filtration Rate >60 (60-); Glucose, Blood 238 mg/dL (70-99); Phosphorus, Blood 1.9 mg/dL (2.5-4.9); Potassium, Blood 3.1 mmol/L (3.5-5.5); Sodium, Blood 140 mmol/L (136-145)
--- NOTE | 2018-11-06 04:40 | NUR ---
SHIFT SUMMARY: PATIENT VSS, USING CALL LIGHT FREQUENTLY. STREP SWAB RESULTS NEGATIVE, PATIENT MEDICATED FOR PAIN, NO OTHER ISSUES. BED LOW AND LOCKED, CALL LIGHT WITHIN REACH AND BED EXIT ALARM ON.
--- NOTE | 2018-11-06 09:00 | NUR ---
PT LAYING IN BED, HE IS SLEEPY THIS AM. HE IS VERY IRRITABLE, SBP WAS 84 INITIALLY. TRIED ON BOTH ARMS. P.T. CAME IN AND HE INTRODUCED HIMSELF, BUT WHEN HE SAW HIS B/P TOLD PT HE WOULD BE BACK THIS AFTERNOON, PT BECAME FIXATED ON THAT AND WAS VERY UPSET THAT HE LEFT. ATTEMPTED TO EXPLAIN THAT IT IS NOT SAFE TO GET UP AND AMBULATE WHEN B/P IS LOW, CALL TO DR. VILLASEÑOR FOR ORDERS FOR FLUID. PT IS NOT EATING OR DRINKING WELL DUE TO A VERY SORE THROAT. PT DECIDED HE WAS GOING INTO THE BATHROOM, AND ATTEMTED TO PUSH THROUGH THIS NURSE, FIRMLY ASKED HIM TO SIT DOWN UNTIL I COULD GET HIM UNHOOKED FROM HIS LINES, GOT HIM UNHOOKED, HE AMBULATED TO BR WITHOUT ASSIST, AND GAIT APPEARED STEADY. WHEN HE CAME OUT HE CLAIMS THAT HE OVERHEARD SOMEONE SAY HE WAS A DEVIL BOY, THIS NURSE WAS OUTSIDE HIS ROOM, NO SUCH THING WAS SAID, AND TOLD HIM THAT. HE IS VERY IRRATIONAL AT TIMES THEN IS SELF DEPRICATING, CALLS HIMSELF DUMB AND OTHER BAD NAMES. SEEMS VERY UNHAPPY AND ANGRY AT HIS SITUATION. HE SEEMS TO HAVE NO COPING SKILLS. FREQUENTLY ASKS FOR EVON AND ATIVAN AT THE SAME TIME, GAVE HIM PAIN MEDS THIS AM, WELL THE GI COCKTAIL FOR HIS THROAT PAIN, HE IS ALSO ON MYCELEX TROCHES, EXPLAINED SEVERAL TIMES TO SUCK ON THEM, HE CHEWS IT UP. WHEN REIDERATED NEED TO SUCK ON IT, HE AGAIN CALLS HIMSELF DUMB. LUNGS ARE CLEAR DIM IN BASES, RESP EVEN AND UNLABORED, IS CURRENTLY ON R/A, NO COUGH NOTED, HRR, TELE IN PLACE RUNNING SR PER MONITOR, SEE STRIP, NO EDEMA NOTED, PPP+1, CAP REFILL <3SEC, VS STABLE, AFEBRILE, IV SITE IS CLEAR AND PATENT, BTX4, ABD FLAT SOFT NONTENDER, VOIDS WITHOUT DIFF, HAD A BM THIS AM, SKIN C/W/D, BRUCE WEINSTEIN, CALL LIGHT IN REACH. RETOOK B/P, SBP >100 AT THIS TIME.
--- NOTE | 2018-11-06 10:53 | NUR ---
PT HAS BEEN TRANSFERED TO MEDICAL FLOOR, EXPLAINED TO HIM THAT HE IS MOVING, NEEDED MORE EXPLAINATION TO WHY. EXPLAINED THAT HE IS STABLE, AND HE DOESN'T MEDICALLY NEED TO BE IN THIS UNIT. REPORT WAS GIVEN TO GISELE MARIE, PT TAKEN UP WITH ALL HIS BELONGINGS VIA WHEELCHAIR.
--- NOTE | 2018-11-06 11:52 | NUR ---
PCU TRANSFER- PT ARRIVED TO ROOM 332 VIA W/C FROM PCU AT 1050 . PT ALERT AND ORIENTED TO PERSON AND PLACE. PCU NURSE REPORTS ON THE WAY UP PT MADE A COMMENT OF JUMPING OFF THE ROOF. I SPOKE WITH PT AND INFORMED HIM THAT WE TAKE THESE COMMENTS SERIOUSLY, SUICIDE RISK EVAL COMPLETED AND IT WAS NEGATIVE. DR VILLASEÑOR NOTIIFIED AND ORDER RECEIVED FOR PSYCH CONSULT. PT REQUESTING ATIVAN AT THIS TIME, CIWA OF 8. PT REPORTS 9/10 PAIN TO THROAT, PRN EVON GIVEN PRIOR TO TRANSFER. LS CLEAR/ DIMINISHED IN THE BASES, ON RA. HRR. BT NORMAL, PT REPORTS POOR PO INTAKE DUE TO PAINFUL THROAT. OR ORIENTED TO ROOM AND CALL SYSTEM, BED ALARM ON AND CALL LIGHT IN REACH.
--- NOTE | 2018-11-06 16:48 | NUR ---
SHIFT SUMMARY- PT A/O TO PERSON AND PLACE. PT IRRITABLE AND ANGRY AT TIMES. PT MADE A COMMENT REGARDING JUMPING OFF THE ROOF, SUICIDE RISK COMPLETED AND WAS NEGATIVE AFTERWARDS. PT DEPRESSED, PSYCH CONSULT PLACED BUT NOT AVAILABLE UNTIL THURSDAY. VSS. LS CLEAR/ DIMINISHED IN THE BASES, ON RA. HRR. PT REPORTS 9/10 PAIN TO THROAT, INESSA AND MAGIC MOUTHWASH GIVEN PT REPORTS VERY LITTLE RELIEF FOR ONLY A SHORT PERIOD OF TIME. POOR PO INTAKE DUE TO ORAL PAIN. PT IMPULSIVE AND UNSTEADY ON FEET. SBA OOB. CIWA OF 8 UPON ARRIVAL TO FLOOR, PRN ATIVAN GIVEN X1. NO OTHER ACUTE CHANGES THIS SHIFT.
[2018-11-07 05:28] LABS: BASOPHILS ABSOLUTE AUTO 0.01 K/mm3 (0.00-0.23); BASOPHILS PERCENT AUTO 0 % (0-2); EOSINOPHILS ABSOLUTE AUTO 0.03 K/mm3 (0.00-0.68); EOSINOPHILS PERCENT AUTO 1 % (0-6); Hemoglobin 9.5 g/dL (13.5-17.5); IMMATURE GRAN ABSOLUTE AUTO 0.07 K/mm3 (0.00-0.10); IMMATURE GRAN PERCENT AUTO 1 % (0-1); LYMPHOCYTES ABSOLUTE AUTO 2.09 K/mm3 (0.84-5.20); LYMPHOCYTES PERCENT AUTO 37 % (21-46); MONOCYTES ABSOLUTE AUTO 1.78 K/mm3 (0.16-1.47); MONOCYTES PERCENT AUTO 31 % (4-13); Mean Corpuscular HGB 31.1 pg (26.0-34.0); Mean Corpuscular HGB Conc 33.9 g/dL (31.5-36.5); Mean Corpuscular Volume 92 fL (80-100); Mean Platelet Volume 10.2 fL (9.1-12.4); NEUTROPHILS ABSOLUTE AUTO 1.71 K/mm3 (1.96-9.15); NEUTROPHILS PERCENT AUTO 30 % (41-73); Platelet Count 203 K/mm3 (150-400); RDW Coefficient Variation 16.2 % (11.7-14.2); RDW Standard Deviation 54.1 fL (35.1-46.3); Red Blood Cell Count 3.05 M/mm3 (4.30-5.90); White Blood Cell Count 5.69 K/mm3 (4.00-11.30)
[2018-11-07 05:47] LABS: Anion Gap 3 mmol/L (6-16); Blood Urea Nitrogen 8 mg/dL (8-24); Bun/Creatinine Ratio 13.3 (12.0-20.0); CO2, Blood 35 mmol/L (21-32); Calcium, Blood 7.3 mg/dL (8.5-10.1); Chloride, Blood 103 mmol/L (98-108); Glomerular Filtration Rate >60 (60-); Glucose, Blood 129 mg/dL (70-99); Phosphorus, Blood 1.7 mg/dL (2.5-4.9); Sodium, Blood 141 mmol/L (136-145)
--- NOTE | 2018-11-07 07:16 | NUR ---
SHIFT SUMMARY PATIENT IS ALERT AND ORIENTED, WITH MILD CONFUSION. PATIENT CONTINUALLY ASKS FOR ATIVAN AND OXYCODONE, SOMETIMES MINUTES AFTER ADMINISTERING THEM. PATIENT COMPLAINS OF A SORE THROAT. MEDICATED ORDERED. PATIENT WAS SHOWERED AND MORGAN SHAVED. NEW IV WAS STARTED, OLD INFILTRATED. PATIENT ATE POPSICLES THROUGHOUT THE NIGHT. PT REQUESTED TO HAVE COFFEE THIS AM. I EDUCATED THE PATIENT THAT THIS WAS NOT A GOOD IDEA GIVEN HOW NAUSEATED HE HAS BEEN AND LACK OF FOOD OR SUBSTANCE IN HIS STOMACHE THE ACIDITY OF THE COFFEE WOULD MAKE IT WORSE. PATIENT STATE HE STILL WANTED HALF A CUP. PATIENT DID NOT GET COFFEE. VITALS STABLE.
--- NOTE | 2018-11-07 16:50 | NUR ---
SHIFT SUMMARY- PT A/O TO PERSON AND PLACE. PT IRRITABLE AND ANGRY AT TIMES. PT MEDICATED T/O SHIFT WITH PAIN MEDS FOR THROAT, HAVE BEEN MEDICATING PRIOR TO MEALS TO BE ABLE TO EAT. SBA OOB, PT UNSTEADY AND IMPULSIVE. LS CLEAR, ON RA. ONE TIME DOSE OF 40MEQ PO GIVEN FOR POTASSIUM OF 3.0. ATIVAN GIVEN X1 FOR ANXIETY. PT AWAITING POSS DISCHARGE BACK TO [facility]. NO OTHER ACUTE CHANGES THIS SHIFT.
[2018-11-07 23:26] LABS: C DIFFICILE BY DNA AMP Positive (Negative)
[2018-11-08 05:53] LABS: Albumin, Blood 2.1 g/dL (3.4-5.0); Anion Gap 4 mmol/L (6-16); Blood Urea Nitrogen 6 mg/dL (8-24); Bun/Creatinine Ratio 8.3 (12.0-20.0); CO2, Blood 33 mmol/L (21-32); Calcium, Blood 7.3 mg/dL (8.5-10.1); Chloride, Blood 105 mmol/L (98-108); Creatinine, Blood 0.72 mg/dL (0.60-1.20); Glomerular Filtration Rate >60 (60-); Glucose, Blood 73 mg/dL (70-99); Phosphorus, Blood 2.1 mg/dL (2.5-4.9); Potassium, Blood 3.4 mmol/L (3.5-5.5); Sodium, Blood 142 mmol/L (136-145)
--- NOTE | 2018-11-08 05:59 | NUR ---
SHIFT SUMMARY PATIENT IS ALERT AND ORIENTED WITH SOME CONFUSION. PATIENT WILL USE CALL LIGHT AND THEN GET OUT OF BED WITHOUT WAITING FOR HELP. WHEN STAFF ASKS PATIENT WHY HE DIDN'T WAIT HE STATES IT HAS BEEN HOURS SINCE HE CALLED. THIS NURSE EDUCATED PATIENT THAT HE IS WEAK AND NOT STEADY ON HIS FEET, HAS AN IV AND IS RECIEVING FLUIDS. THAT HE HAS ALMOST PULLED OUT MULTIPLE TIMES FROM NOT BEING AWARE OF WHERE THE CORD IS. THEREFORE IT IS VERY IMPORTANT THAT HE WAIT FOR HELP BEFORE GETTING OUT OF BED. PT CONTINUED TO GET OUT OF BED WITHOUT HELP. BED ALARM WAS USED ALL SHIFT. STOOL SAMPLE WAS SENT TO LAB AND CAME BACK POSITIVE FOR C-DIFF. BLOOD PRESSURE IS SLIGHTLY LOW, NO LOWER THAN WHAT IT HAS BEEN. NO ACUTE CONCERNS.
[2018-11-08 06:00] LABS: BASOPHILS ABSOLUTE AUTO 0.03 K/mm3 (0.00-0.23); BASOPHILS PERCENT AUTO 1 % (0-2); EOSINOPHILS ABSOLUTE AUTO 0.03 K/mm3 (0.00-0.68); EOSINOPHILS PERCENT AUTO 1 % (0-6); Hematocrit 29.6 % (37.0-53.0); IMMATURE GRAN ABSOLUTE AUTO 0.07 K/mm3 (0.00-0.10); IMMATURE GRAN PERCENT AUTO 1 % (0-1); LYMPHOCYTES PERCENT AUTO 37 % (21-46); MONOCYTES ABSOLUTE AUTO 1.55 K/mm3 (0.16-1.47); MONOCYTES PERCENT AUTO 26 % (4-13); Mean Corpuscular HGB 31.3 pg (26.0-34.0); Mean Corpuscular HGB Conc 33.8 g/dL (31.5-36.5); Mean Corpuscular Volume 93 fL (80-100); Mean Platelet Volume 10.4 fL (9.1-12.4); NEUTROPHILS ABSOLUTE AUTO 2.09 K/mm3 (1.96-9.15); NEUTROPHILS PERCENT AUTO 35 % (41-73); Platelet Count 244 K/mm3 (150-400); RDW Coefficient Variation 16.7 % (11.7-14.2); RDW Standard Deviation 54.7 fL (35.1-46.3); Red Blood Cell Count 3.19 M/mm3 (4.30-5.90); White Blood Cell Count 5.97 K/mm3 (4.00-11.30)
--- NOTE | 2018-11-08 19:21 | NUR ---
SHIFT SUMMARY: NO ACUTE CHANGES TO REPORT THIS SHIFT. PT A&O; ANXIOUS; COOPERATIVE WITH CARE. MEDICATED FOR PAIN & ANXIETY PER EMAR. PT UP WITH SBA TO BATHROOM. PT C/O DIFFICULTY SWALLOWING AND FOOD ITEMS EXCEPT CREAM OF WHEAT & POPSICLES. DISCHARGE PLANNERS WORKING ON SAFE DISCHARGE PLAN. REPORT GIVEN TO ONCOMING RN.
[2018-11-09 05:52] LABS: BASOPHILS ABSOLUTE AUTO 0.02 K/mm3 (0.00-0.23); BASOPHILS PERCENT AUTO 0 % (0-2); EOSINOPHILS ABSOLUTE AUTO 0.05 K/mm3 (0.00-0.68); EOSINOPHILS PERCENT AUTO 1 % (0-6); Hematocrit 31.7 % (37.0-53.0); Hemoglobin 10.2 g/dL (13.5-17.5); IMMATURE GRAN ABSOLUTE AUTO 0.05 K/mm3 (0.00-0.10); IMMATURE GRAN PERCENT AUTO 1 % (0-1); LYMPHOCYTES ABSOLUTE AUTO 2.08 K/mm3 (0.84-5.20); LYMPHOCYTES PERCENT AUTO 44 % (21-46); MONOCYTES ABSOLUTE AUTO 1.02 K/mm3 (0.16-1.47); MONOCYTES PERCENT AUTO 21 % (4-13); Mean Corpuscular HGB 30.4 pg (26.0-34.0); Mean Corpuscular HGB Conc 32.2 g/dL (31.5-36.5); Mean Corpuscular Volume 95 fL (80-100); Mean Platelet Volume 10.5 fL (9.1-12.4); NEUTROPHILS ABSOLUTE AUTO 1.55 K/mm3 (1.96-9.15); NEUTROPHILS PERCENT AUTO 33 % (41-73); Platelet Count 289 K/mm3 (150-400); RDW Coefficient Variation 17.1 % (11.7-14.2); Red Blood Cell Count 3.35 M/mm3 (4.30-5.90); White Blood Cell Count 4.77 K/mm3 (4.00-11.30)
[2018-11-09 06:12] LABS: Albumin, Blood 2.2 g/dL (3.4-5.0); Anion Gap 3 mmol/L (6-16); Blood Urea Nitrogen 6 mg/dL (8-24); CO2, Blood 34 mmol/L (21-32); Calcium, Blood 7.6 mg/dL (8.5-10.1); Chloride, Blood 104 mmol/L (98-108); Creatinine, Blood 0.67 mg/dL (0.60-1.20); Glomerular Filtration Rate >60 (60-); Glucose, Blood 242 mg/dL (70-99); Phosphorus, Blood 3.1 mg/dL (2.5-4.9); Potassium, Blood 3.8 mmol/L (3.5-5.5); Sodium, Blood 141 mmol/L (136-145)
--- NOTE | 2018-11-09 07:29 | NUR ---
needy, a+o, treated as prescribed for anxiety and pain, NS infusing with no s/sx of infection or infiltration, walking rounds completed with day staff, call light in reach
--- NOTE | 2018-11-09 09:40 | NUR ---
PT ENCOURAGED TO REMAIN IN ROOM FOR DISCHARGE PLANNING, MEDICATIONS AND FOLLOW UP INFORMATION. PT STATES "I HAVE TO SMOKE, I HAVE TO GO OUTSIDE"; OFFERED NICOTINE PATCH AND INFORMED OF RISKS OF LEAVING THE HOSPITAL. PT REFUSED TO REMAIN IN ROOM. AMANDA FONTAINE RN NOTIFIED. PT WALKED TOWARD ELEVATORS.
--- NOTE | 2018-11-09 10:31 | NUR ---
UNABLE TO LOCATE PATIENT.
--- NOTE | 2018-11-09 11:37 | NUR ---
SECURITY CALLED TO ATTEMPT TO LOCATE PT AND REQUEST THAT PT RETURN TO ROOM.
--- NOTE | 2018-11-09 11:45 | NUR ---
UNABLE TO LOCATE PATIENT REPORTED TO DR. DE LA GARZA
--- NOTE | 2018-11-09 12:00 | NUR ---
PT DISCHARGED AMA. UNABLE TO LOCATE PATIENT. ERNESTINA Eubanks PEST CONTROL APPLICATOR AWARE. DR. DE LA GARZA INFORMED.
== END 2018-11-09 12:00 | disposition left against medical advice (07) | DRG 683 ==
LOC: ER 15:37 → MEDS 17:18 → PCU 17:18 → ICUW 19:53 → PCU 11-05 10:01 → MEDS 11-06 10:45
PROVIDERS: Emergency Medicine; Family Medicine; Hospitalist; Internal Medicine; ADMIT Internal Medicine
DX: N17.9 Acute kidney failure, unspecified (principal); F10.230 Alcohol dependence with withdrawal, uncomplicated; K86.1 Other chronic pancreatitis; E87.1 Hypo-osmolality and hyponatremia; R65.10 Systemic inflammatory response syndrome (SIRS) of non-infectious origin without acute organ dysfunction; E51.2 Wernicke's encephalopathy; K21.9 Gastro-esophageal reflux disease without esophagitis; K86.9 Disease of pancreas, unspecified; K12.1 Other forms of stomatitis; F17.210 Nicotine dependence, cigarettes, uncomplicated; K74.60 Unspecified cirrhosis of liver; E83.39 Other disorders of phosphorus metabolism; D69.6 Thrombocytopenia, unspecified; E11.65 Type 2 diabetes mellitus with hyperglycemia; Z79.4 Long term (current) use of insulin; E87.6 Hypokalemia; D64.9 Anemia, unspecified; B08.8 Other specified viral infections characterized by skin and mucous membrane lesions; I95.9 Hypotension, unspecified
CPT/HCPCS: 36415; 71045; 80048; 80053; 80069; 81001; 82947; 83690; 83735; 84100; 85025; 85027; 87081; 87324; 87430; 87493; 92526; 92610; 93005; 93010; 96361; 96374; 96375; 96376; 97110; 97116; 97161; 97165; 97530; 97535; 99285-25; A9270; C9113; J1120; J1644; J1815; J2060; J2405; J3411; J3475; J3480; J7030; J7042; J7120

== ENCOUNTER 2018-11-13 03:30 | Emergency (ER) | payer OTHER ==
[~2018-11-13] VITALS: Ht 185.4 cm; Wt 68.0 kg
[2018-11-13 05:36] LABS: BASOPHILS ABSOLUTE AUTO 0.07 K/mm3 (0.00-0.23); BASOPHILS PERCENT AUTO 1 % (0-2); EOSINOPHILS ABSOLUTE AUTO 0.09 K/mm3 (0.00-0.68); EOSINOPHILS PERCENT AUTO 1 % (0-6); Hematocrit 31.1 % (37.0-53.0); Hemoglobin 10.1 g/dL (13.5-17.5); IMMATURE GRAN ABSOLUTE AUTO 0.02 K/mm3 (0.00-0.10); IMMATURE GRAN PERCENT AUTO 0 % (0-1); LYMPHOCYTES ABSOLUTE AUTO 2.08 K/mm3 (0.84-5.20); LYMPHOCYTES PERCENT AUTO 33 % (21-46); MONOCYTES PERCENT AUTO 13 % (4-13); Mean Corpuscular HGB Conc 32.5 g/dL (31.5-36.5); Mean Corpuscular Volume 95 fL (80-100); Mean Platelet Volume 10.2 fL (9.1-12.4); NEUTROPHILS ABSOLUTE AUTO 3.21 K/mm3 (1.96-9.15); NEUTROPHILS PERCENT AUTO 51 % (41-73); Platelet Count 394 K/mm3 (150-400); RDW Coefficient Variation 17.5 % (11.7-14.2); RDW Standard Deviation 58.7 fL (35.1-46.3); Red Blood Cell Count 3.26 M/mm3 (4.30-5.90); White Blood Cell Count 6.27 K/mm3 (4.00-11.30)
[2018-11-13 06:10] LABS: Alanine Aminotransfer (ALT/SGP 24 U/L (12-78); Albumin, Blood 2.3 g/dL (3.4-5.0); Albumin/Globulin Ratio 0.6 (0.8-1.8); Alk Phos 147 U/L (50-136); Anion Gap 4 mmol/L (6-16); Aspartate Aminotrans (AST/SGOT 15 U/L (12-37); Bilirubin, Total 0.5 mg/dL (0.1-1.0); Blood Urea Nitrogen 4 mg/dL (8-24); Bun/Creatinine Ratio 4.9 (12.0-20.0); CO2, Blood 39 mmol/L (21-32); Chloride, Blood 103 mmol/L (98-108); Creatinine, Blood 0.81 mg/dL (0.60-1.20); Globulin, Blood 3.6 g/dL (2.2-4.0); Glomerular Filtration Rate >60 (60-); Glucose, Blood 118 mg/dL (70-99); Potassium, Blood 3.3 mmol/L (3.5-5.5); Sodium, Blood 146 mmol/L (136-145); Total Protein, Blood 5.9 g/dL (6.4-8.2)
[2018-11-13] MEDS ORDERED: Vancocin HCl125 MG PO (06:25)
== END 2018-11-13 06:59 | disposition home or self-care (01) ==
LOC: ER 03:30
PROVIDERS: Emergency Medicine
DX: A04.72 Enterocolitis due to Clostridium difficile, not specified as recurrent (principal); R47.02 Dysphasia; R60.9 Edema, unspecified; Z88.6 Allergy status to analgesic agent; Z79.899 Other long term (current) drug therapy; Z79.4 Long term (current) use of insulin; F17.210 Nicotine dependence, cigarettes, uncomplicated
CPT/HCPCS: 36415; 80053; 85025; 93971; 96360; 99284-25; J3370; J7030

== ENCOUNTER → 2019-06-07 | Outpatient (CLI) | payer OTHER ==
[~2019-06-07] MED LIST changes: +Vancocin HCl125 MG PO
== END | disposition home or self-care (01) ==
LOC: LAB SHORT 15:00 → LAB 15:00 → LAB FUT 06-07 11:25
DX: R19.7 Diarrhea, unspecified (principal)
CPT/HCPCS: 87493

== ENCOUNTER → 2022-05-10 | Outpatient (CLI) | payer OTHER ==
[2022-05-10 11:25] LABS: BASOPHILS ABSOLUTE AUTO 0.04 K/mm3 (0.00-0.23); BASOPHILS PERCENT AUTO 0 % (0-2); EOSINOPHILS ABSOLUTE AUTO 0.02 K/mm3 (0.00-0.68); EOSINOPHILS PERCENT AUTO 0 % (0-6); Hematocrit 36.3 % (37.0-53.0); Hemoglobin 12.5 g/dL (13.5-17.5); IMMATURE GRAN ABSOLUTE AUTO 0.15 K/mm3 (0.00-0.10); IMMATURE GRAN PERCENT AUTO 1 % (0-1); LYMPHOCYTES ABSOLUTE AUTO 1.22 K/mm3 (0.84-5.20); LYMPHOCYTES PERCENT AUTO 9 % (21-46); MONOCYTES ABSOLUTE AUTO 2.08 K/mm3 (0.16-1.47); MONOCYTES PERCENT AUTO 16 % (4-13); Mean Corpuscular HGB 30.1 pg (26.0-34.0); Mean Corpuscular HGB Conc 34.4 g/dL (31.5-36.5); Mean Corpuscular Volume 88 fL (80-100); Mean Platelet Volume 12.1 fL (9.1-12.4); NEUTROPHILS ABSOLUTE AUTO 9.75 K/mm3 (1.96-9.15); NEUTROPHILS PERCENT AUTO 74 % (41-73); Platelet Count 177 K/mm3 (150-400); RDW Coefficient Variation 12.5 % (11.7-14.2); RDW Standard Deviation 40.3 fL (35.1-46.3); Red Blood Cell Count 4.15 M/mm3 (4.30-5.90); White Blood Cell Count 13.26 K/mm3 (4.00-11.30)
[2022-05-10 11:32] LABS: Albumin, Blood 2.6 g/dL (3.4-5.0); Albumin/Globulin Ratio 0.6 (0.8-1.8); Bilirubin, Total 0.5 mg/dL (0.1-1.0); Bun/Creatinine Ratio 22.5 (12.0-20.0); Calcium, Blood 9.8 mg/dL (8.5-10.1); Creatinine, Blood 0.89 mg/dL (0.60-1.20); Globulin, Blood 4.6 g/dL (2.2-4.0); Potassium, Blood 3.5 mmol/L (3.5-5.5); Total Protein, Blood 7.2 g/dL (6.4-8.2)
== END | disposition home or self-care (01) ==
LOC: LAB SHORT 11:19 → LAB 11:19
PROVIDERS: Physician Assistant
DX: J18.1 Lobar pneumonia, unspecified organism (principal)
CPT/HCPCS: 80053; 85025

== ENCOUNTER → 2023-06-08 | Outpatient (CLI) | payer OTHER ==
[2023-06-08 08:58] LABS: BASOPHILS ABSOLUTE AUTO 0.03 K/mm3 (0.00-0.23); BASOPHILS PERCENT AUTO 0 % (0-2); EOSINOPHILS ABSOLUTE AUTO 0.07 K/mm3 (0.00-0.68); EOSINOPHILS PERCENT AUTO 1 % (0-6); Hematocrit 44.8 % (37.0-53.0); Hemoglobin 15.2 g/dL (13.5-17.5); IMMATURE GRAN ABSOLUTE AUTO 0.04 K/mm3 (0.00-0.10); IMMATURE GRAN PERCENT AUTO 0 % (0-1); LYMPHOCYTES ABSOLUTE AUTO 1.77 K/mm3 (0.84-5.20); LYMPHOCYTES PERCENT AUTO 13 % (21-46); MONOCYTES ABSOLUTE AUTO 1.06 K/mm3 (0.16-1.47); MONOCYTES PERCENT AUTO 8 % (4-13); Mean Corpuscular HGB 28.5 pg (26.0-34.0); Mean Corpuscular HGB Conc 33.9 g/dL (31.5-36.5); Mean Corpuscular Volume 84 fL (80-100); Mean Platelet Volume 11.3 fL (9.1-12.4); NEUTROPHILS ABSOLUTE AUTO 10.67 K/mm3 (1.96-9.15); NEUTROPHILS PERCENT AUTO 78 % (41-73); Platelet Count 475 K/mm3 (150-400); RDW Coefficient Variation 13.3 % (11.7-14.2); RDW Standard Deviation 40.4 fL (35.1-46.3); Red Blood Cell Count 5.33 M/mm3 (4.30-5.90); White Blood Cell Count 13.64 K/mm3 (4.00-11.30)
[2023-06-08 09:09] LABS: Albumin, Blood 3.7 g/dL (3.4-5.0); Albumin/Globulin Ratio 0.7 (0.8-1.8); Bilirubin, Total 0.3 mg/dL (0.1-1.0); Calcium, Blood 9.9 mg/dL (8.5-10.1); Creatinine, Blood 1.18 mg/dL (0.60-1.20); Globulin, Blood 5.1 g/dL (2.2-4.0); Potassium, Blood 4.6 mmol/L (3.5-5.5); Total Protein, Blood 8.8 g/dL (6.4-8.2)
== END | disposition home or self-care (01) ==
LOC: LAB 08:53 → LAB SHORT 08:53
PROVIDERS: Physician Assistant
DX: R73.9 Hyperglycemia, unspecified (principal)
CPT/HCPCS: 80053; 83880; 85025

== ENCOUNTER 2023-07-24 14:20 | Inpatient (IN) | payer OTHER ==
[~2023-07-24] VITALS: Ht 185.4 cm; Wt 61.0 kg
[2023-07-24 15:35] LABS: Hematocrit 46.5 % (37.0-53.0); Hemoglobin 15.7 g/dL (13.5-17.5); Mean Corpuscular HGB Conc 33.8 g/dL (31.5-36.5); Mean Corpuscular Volume 86 fL (80-100); Platelet Count 297 K/mm3 (150-400); RDW Coefficient Variation 14.2 % (11.7-14.2); RDW Standard Deviation 44.7 fL (35.1-46.3); Red Blood Cell Count 5.42 M/mm3 (4.30-5.90); White Blood Cell Count 27.25 K/mm3 (4.00-11.30)
[2023-07-24 15:54] LABS: Albumin, Blood 3.4 g/dL (3.4-5.0); Albumin/Globulin Ratio 0.7 (0.8-1.8); Bun/Creatinine Ratio 15.5 (12.0-20.0); Calcium, Blood 9.7 mg/dL (8.5-10.1); Creatinine, Blood 0.77 mg/dL (0.60-1.20); Globulin, Blood 5.2 g/dL (2.2-4.0); Potassium, Blood 3.4 mmol/L (3.5-5.5); Total Protein, Blood 8.6 g/dL (6.4-8.2)
[2023-07-24 15:57] LABS: BAND PERCENT MAN 13 % (0-8); BASOPHILS PERCENT MAN 0 % (0-2); EOSINOPHILS PERCENT MAN 0 % (0-6); METAMYELOCYTE ABSOLUTE MAN 0.27 K/mm3 (0.00-0.00); METAMYELOCYTE PERCENT MAN 1 % (0-0); MONOCYTES ABSOLUTE MAN 1.36 K/mm3 (0.16-1.47); MONOCYTES PERCENT MAN 5 % (4-13); NEUTROPHILS ABSOLUTE MAN 25.61 K/mm3 (1.96-9.15); SEG NEUTROPHILS PERCENT MAN 81 % (41-73); TOTAL CELLS COUNTED 100
[2023-07-24] MEDS ORDERED: NS 1,000 ML IV SCH (16:25)
[2023-07-24] MEDS ORDERED: OxyCODONE 5 mg/Acetamin 325 mg TABLET PO ONE (16:30)
[2023-07-24] MEDS ORDERED: Azithromycin 500 MG in NS 250 ML IV ONE (16:30)
[2023-07-24] MEDS ORDERED: CefTRIAXone Sodium 1,000 MG in NS 50 ML IV ONE (16:30)
[2023-07-24] MEDS ORDERED: Potassium Chloride 20 MEQ TabCR PO ONE (16:30)
[2023-07-24] MEDS ORDERED: Magnesium Sulf 2 GM/Water 50ML 50 ML IV ONE (17:10)
[2023-07-24 17:41] LABS: Influenza A, PCR NEGATIVE (NEGATIVE); Influenza B, PCR NEGATIVE (NEGATIVE); Resp Syncytial Virus, PCR NEGATIVE (NEGATIVE); SARS-Cov-2 (COVID-19) PCR, MMC NEGATIVE (NEGATIVE)
[2023-07-24] MEDS ORDERED: NS KCl 20mEq 1,000 ML IV SCH (18:15)
[2023-07-24] MEDS ORDERED: Acetaminophen 325 MG TABLET PO PRN (18:20)
[2023-07-24] MEDS ORDERED: Magnesium Hydroxide Conc 10 ML UDC PO PRN (18:20)
[2023-07-24] MEDS ORDERED: FLU VACC QS2023-24(6MOS UP)/PF 60 MCG/0.5 ML SYRINGE IM SCH (18:20)
[2023-07-24] MEDS ORDERED: Lactobacil 2-S.Thermo-Bifido 1 1 Cap PO SCH (21:00)
[2023-07-24] MEDS ORDERED: Insulin Regular 100 UNIT/ML 10ML Vial SC SCH (21:00)
[2023-07-24 21:27] VITALS: BP 118/75
--- NOTE | 2023-07-24 22:09 | NUR ---
PT POC CBG 360. HOSPITALIST NOTIFIED AND 1 UNIT IN ADDITION TO 5 UNITS R INSULIN PER SLIDING SCALED ORDERED, ALSO RECHECK BLOOD GLUCOSE 2 HOURS LATER.
[2023-07-24] MEDS ORDERED: Magnesium Sulf 2 GM/Water 50ML 50 ML IV STA (22:49)
[2023-07-25 02:15] VITALS: BP 102/68
[2023-07-25 04:57] LABS: Hematocrit 39.3 % (37.0-53.0); Hemoglobin 13.5 g/dL (13.5-17.5); Mean Corpuscular HGB 28.8 pg (26.0-34.0); Mean Corpuscular HGB Conc 34.4 g/dL (31.5-36.5); Mean Corpuscular Volume 84 fL (80-100); Mean Platelet Volume 10.6 fL (9.1-12.4); Platelet Count 235 K/mm3 (150-400); RDW Coefficient Variation 14.2 % (11.7-14.2); RDW Standard Deviation 43.6 fL (35.1-46.3); Red Blood Cell Count 4.69 M/mm3 (4.30-5.90); White Blood Cell Count 23.46 K/mm3 (4.00-11.30)
--- NOTE | 2023-07-25 05:38 | NUR ---
SHIFT SUMMARY NOC PT A/O X 4. PLEASANT AND COOPERATIVE WITH CARE. ADMIT FROM ED WITH DX OF SEPIS SECONDARY LLL PNA. PT ALSO HAS NEW DX OF COPD. PT HAS BEEN TACHYCARDIC IN 120'S ON TELE. PT WAS FEBRILE AND TYLENOL GIVEN AND HAS BEEN AFREBILE SINCE. MG 1.4 AND SECOND REPLACEMENT GIVEN, WAITING ON AM LABS FOR IMPROVEMENT WELL POTASSIUM WHICH WAS REPLACED. INFUSION OF 20 MEQ KCL NS @ 125 ML/HR RUNNING X 1 BAG. CBG 360 UPON ADMIT TO FLOOR 6 UNITS R INSULIN GIVEN, RECHECKED 2 HOURS LATER CBG 257. WBC 27.25 UPON ADMIT. IV ABX GIVEN IN ED. PT IS CURRENTLY RESTING WITH BED IN LOWEST POSITION, AND CALL LIGHT WITHIN REACH.
[2023-07-25 05:44] LABS: BAND PERCENT MAN 18 % (0-8); BASOPHILS PERCENT MAN 0 % (0-2); EOSINOPHILS PERCENT MAN 0 % (0-6); LYMPHOCYTES ABSOLUTE MAN 1.17 K/mm3 (0.84-5.20); LYMPHOCYTES PERCENT MAN 5 % (21-46); MONOCYTES PERCENT MAN 6 % (4-13); NEUTROPHILS ABSOLUTE MAN 20.87 K/mm3 (1.96-9.15); SEG NEUTROPHILS PERCENT MAN 71 % (41-73); TOTAL CELLS COUNTED 100
[2023-07-25] MEDS ORDERED: Omeprazole 20 MG CapCR PO SCH (06:00)
[2023-07-25 06:07] LABS: Magnesium, Blood 1.7 mg/dL (1.6-2.4); Thyroid Stimulating Hormone 0.814 uIU/mL (0.360-4.800)
[2023-07-25 06:22] LABS: Albumin, Blood 2.1 g/dL (3.4-5.0); Albumin/Globulin Ratio 0.6 (0.8-1.8); Bilirubin, Total 0.4 mg/dL (0.1-1.0); Bun/Creatinine Ratio 24.1 (12.0-20.0); Calcium, Blood 8.1 mg/dL (8.5-10.1); Creatinine, Blood 0.54 mg/dL (0.60-1.20); Globulin, Blood 3.7 g/dL (2.2-4.0); Potassium, Blood 3.6 mmol/L (3.5-5.5); Total Protein, Blood 5.8 g/dL (6.4-8.2)
[2023-07-25 08:04] VITALS: BP 111/72
[2023-07-25] MEDS ORDERED: Enoxaparin 40 MG/0.4 ML SYR SC SCH (09:00)
[2023-07-25] MEDS ORDERED: Azithromycin 500 MG in NS 250 ML IV SCH (09:00)
[2023-07-25] MEDS ORDERED: Insulin Glargine-Yfgn 100 Unit/mL 3 ML SYR SC SCH (09:00)
[2023-07-25] MEDS ORDERED: CefTRIAXone Sodium 2,000 MG in NS 100 ML IV SCH (09:00)
[2023-07-25] MEDS ORDERED: Ketorolac Tromethamine 30mg Vial IV PRN (10:25)
[2023-07-25] MEDS ORDERED: Methocarbamol 500 MG Tab PO SCH (14:00)
[2023-07-25 15:53] VITALS: BP 103/71
--- NOTE | 2023-07-25 16:29 | NUR ---
SHIFT SUMMARY PATIENT AMBULATING TO BATHROOM INDEPENDENTLY THIS SHIFT. RECEIVING ABX, TOLERATING WELL. C/O PAIN TO THORACIC AREA GENERALIZED. GIVEN TOREDOL AND MUSCLE RELAXER FOR PAIN RELIEF, DECLINED HEATING PAD STATING HIS SKIN IS TOO SENSITIVE TO TEMPERATURE CHANGES AND IT FEELS LIKE PINS AND NEEDLES ALL OVER. REPORTS SEVERAL TIMES THROUGHOUT THE SHIFT THAT HE JUST DOESN'T FEEL GOOD. RESTING IN BED WITH EYES CLOSED MOST OF SHIFT. CALL LIGHT IN REACH. CARES ONGOING.
[2023-07-25 20:27] VITALS: BP 108/73
[2023-07-25] MEDS ORDERED: GuaiFENesin 600 MG TabCR PO SCH (21:00)
[2023-07-26 05:09] LABS: BASOPHILS ABSOLUTE AUTO 0.06 K/mm3 (0.00-0.23); BASOPHILS PERCENT AUTO 0 % (0-2); EOSINOPHILS ABSOLUTE AUTO 0.01 K/mm3 (0.00-0.68); EOSINOPHILS PERCENT AUTO 0 % (0-6); Hematocrit 40.4 % (37.0-53.0); Hemoglobin 13.7 g/dL (13.5-17.5); IMMATURE GRAN ABSOLUTE AUTO 0.23 K/mm3 (0.00-0.10); IMMATURE GRAN PERCENT AUTO 1 % (0-1); LYMPHOCYTES ABSOLUTE AUTO 1.17 K/mm3 (0.84-5.20); LYMPHOCYTES PERCENT AUTO 5 % (21-46); MONOCYTES ABSOLUTE AUTO 1.87 K/mm3 (0.16-1.47); MONOCYTES PERCENT AUTO 8 % (4-13); Mean Corpuscular HGB 28.8 pg (26.0-34.0); Mean Corpuscular HGB Conc 33.9 g/dL (31.5-36.5); Mean Corpuscular Volume 85 fL (80-100); Mean Platelet Volume 11.4 fL (9.1-12.4); NEUTROPHILS ABSOLUTE AUTO 19.38 K/mm3 (1.96-9.15); NEUTROPHILS PERCENT AUTO 85 % (41-73); Platelet Count 249 K/mm3 (150-400); RDW Coefficient Variation 14.2 % (11.7-14.2); Red Blood Cell Count 4.76 M/mm3 (4.30-5.90); White Blood Cell Count 22.72 K/mm3 (4.00-11.30)
[2023-07-26 05:46] LABS: Bun/Creatinine Ratio 26.2 (12.0-20.0); Calcium, Blood 8.5 mg/dL (8.5-10.1); Creatinine, Blood 0.53 mg/dL (0.60-1.20); Potassium, Blood 3.6 mmol/L (3.5-5.5)
--- NOTE | 2023-07-26 06:13 | NUR ---
SHIFT SUMMARY NOC PT A/O X 4. PLEASANT AND COOPERATIVE WITH CARE. PT HAS BEEN TACHYCARDIC IN 120'S ON TELE, HR INCREASES TO 130'S-140'S WITH ACTIVIY. PT HAS REMAINED AFREBILE. PT HAS NOT HAD C/O OF PAIN AND HAS SLEPT MAJORITY OF SHIFT. BEDTIME CBG 272 AND 1 UNIT R INSULIN GIVEN PER SLIDING SCALE FOR COVERAGE. PT USING FLUTTER VALVE FREQUENTLY AND REPORTING DECREASED CONGESTION. PT IS CURRENTLY RESTING WITH BED IN LOWEST POSITION, AND CALL LIGHT WITHIN REACH.
[2023-07-26 06:15] VITALS: BP 131/87
[2023-07-26 08:00] VITALS: BP 117/85
[2023-07-26] MEDS ORDERED: HYDROcodone 5-APAP 325 TAB PO PRN (08:30)
[2023-07-26 17:16] VITALS: BP 124/88
[2023-07-26 19:26] VITALS: BP 124/80
--- NOTE | 2023-07-26 19:35 | NUR ---
SHIFT SUMMARY TOLERATING ABX WELL. ABLE TO AMBULATE TO BATHROOM SEVERAL TIMES THIS SHIFT. C/O BACK PAIN, GIVEN NORCO WITH GOOD RELIEF. CARES ONGOING.
[2023-07-26] MEDS ORDERED: NS 250 ML IV PRN (23:50)
[2023-07-27 04:41] VITALS: BP 139/87
[2023-07-27 05:36] LABS: BASOPHILS ABSOLUTE AUTO 0.03 K/mm3 (0.00-0.23); BASOPHILS PERCENT AUTO 0 % (0-2); EOSINOPHILS ABSOLUTE AUTO 0.02 K/mm3 (0.00-0.68); EOSINOPHILS PERCENT AUTO 0 % (0-6); Hematocrit 38.8 % (37.0-53.0); Hemoglobin 12.9 g/dL (13.5-17.5); IMMATURE GRAN ABSOLUTE AUTO 0.08 K/mm3 (0.00-0.10); IMMATURE GRAN PERCENT AUTO 1 % (0-1); LYMPHOCYTES ABSOLUTE AUTO 1.37 K/mm3 (0.84-5.20); LYMPHOCYTES PERCENT AUTO 11 % (21-46); MONOCYTES PERCENT AUTO 9 % (4-13); Mean Corpuscular HGB 28.3 pg (26.0-34.0); Mean Corpuscular HGB Conc 33.2 g/dL (31.5-36.5); Mean Corpuscular Volume 85 fL (80-100); NEUTROPHILS ABSOLUTE AUTO 10.05 K/mm3 (1.96-9.15); NEUTROPHILS PERCENT AUTO 79 % (41-73); Platelet Count 295 K/mm3 (150-400); RDW Coefficient Variation 14.4 % (11.7-14.2); Red Blood Cell Count 4.56 M/mm3 (4.30-5.90); White Blood Cell Count 12.75 K/mm3 (4.00-11.30)
[2023-07-27 06:08] LABS: Bun/Creatinine Ratio 22.8 (12.0-20.0); Calcium, Blood 8.7 mg/dL (8.5-10.1); Creatinine, Blood 0.53 mg/dL (0.60-1.20); Potassium, Blood 3.4 mmol/L (3.5-5.5)
--- NOTE | 2023-07-27 06:34 | NUR ---
SHIFT SUMMARY NOC PT A/O X 4. PLEASANT AND COOPERATIVE WITH CARE. NO ACUTE CHANGE TO REPORT. STILL RUNNING SINUS TACH @ 110'S ON TELE. HS CBG 320 AND 3 UNITS R INSULIN GIVEN PER SLIDING SCALE. GENERALIZED PAIN BEING MANAGED PER EMAR. PT REPORTS BEING ABLE TO EXPEL SECRETIONS THAT ARE THICK/WHITE. PT CURRENTLY RESTING WITH BED IN LOWEST POSITION, AND CALL LIGHT WITHIN REACH.
[2023-07-27 07:49] VITALS: BP 140/91
[2023-07-27] MEDS ORDERED: Promethazine HCl 25 MG Tab PO PRN (08:00)
[2023-07-27] MEDS ORDERED: NS 250 ML IV ONE ×2 (08:01→08:04)
[2023-07-27] MEDS ORDERED: CefTRIAXone 2000 MG Vial ONE (08:01)
[2023-07-27] MEDS ORDERED: NS 100 ML IV ONE (08:11)
[2023-07-27] MEDS ORDERED: [UNRECOGNIZED DRUG - OTHER] PO PRN (08:15)
[2023-07-27] MEDS ORDERED: [UNRECOGNIZED DRUG - OTHER] PO SCH (08:30)
[2023-07-27] MEDS ORDERED: Potassium Chloride 20 MEQ TabCR PO ONE (09:00)
[2023-07-27] MEDS ORDERED: Metoprolol Tartrate 25 MG Tab PO SCH (09:00)
[2023-07-27] MEDS ORDERED: Insulin Glargine-Yfgn 100 Unit/mL 3 ML SYR SC SCH (09:00)
[2023-07-27] MEDS ORDERED: Amylase/Lipase/Protease DR Cap 12,000 PO SCH (12:30)
[2023-07-27 16:56] VITALS: BP 140/93
--- NOTE | 2023-07-27 18:41 | NUR ---
PT HAS BEEN PLEASANT TODAY. H/R REG, SOME TACHY. AVG 100'S. LIGHT CRACKLES IN LOW RT LUNG. PAIN HAS BEEN MANAGED WITH AVAIL MEDS TO PT SATISFACTION, STATES THE TORADOL DID NOT MAKE HIS HEAD FEAL GOOD, SOME FOGGY. ONLY TRIED ONCE, THEN BACK TO [place]. VSS. MENTIONED LIKELY DISCHARGE TOMORROW. BED IN LOW POSITION, CALL LITE IN REACH, CALLS APPROP
--- NOTE | 2023-07-27 18:44 | NUR ---
PT CALLED ME TO ROOM. STATES CANNOT REACH PARENTS. IS VERY CONCERNED. STATES WILL GO AMA IF NEEDS. BUT MUST GO SOON. CALLED DR ALTMAN. SHE OKAY TO DISCHARGE AND WILL DO SO FOR HIM. HE AGREES AND UNDERSTANDS MAY TAKE HOUR OR SO.
[2023-07-27] MEDS ORDERED: GUAIFENESIN ER600 MG PO (19:29)
[2023-07-27] MEDS ORDERED: VISBIOME 112.51 EACH PO (19:30)
[2023-07-27] MEDS ORDERED: METO25 PO (19:30)
[2023-07-27] MEDS ORDERED: AMOCLA875 PO (19:30)
[2023-07-27] MEDS ORDERED: IBUP400 PO (19:31)
--- NOTE | 2023-07-27 20:16 | NUR ---
DISCHARGE NOTE DC ORDERS OBTAINED, AM RN VOICED PT THREATENED TO GO AMA IF NOT IMMEDIATELY DC'D. AM RN REPORTED PT WORRIED ABOUT HIS PARENTS, NOT BEING ABLE TO CONTACT THEM. HS MEDS ADMINISTERED, INCLUDING FIRST DOSE OF METOPROLOL. INFORMATION GIVEN RE MED, - ALSO INCLUDED IN DC PACKET WHICH PT RECEIVED. VSS. IV REMOVED. ABLE TO AMBULATE ABOUT ROOM, CONTINENT. NO C/O VOICED. RIDE SET UP FOR PT BY CHANGE NURSE. WILL TRANSPORT PT TO ED FOR RIDE CONNECTION
--- NOTE | 2023-07-27 21:18 | NUR ---
TRANSPORTED TO ED VIA WHEELCHAIR FOR CONNECTION WITH TAXI POST DC. ALERT AND ORIENTD. AFFECT CHEERFUL. NO C/O. STAFF IN ED TO FOLLOW THROUGH WITH TAXI CONNECTION/ UPON THEIR ARRIVAL
== END 2023-07-27 21:18 | disposition home or self-care (01) | DRG 871 ==
LOC: ER 14:20 → MEDS 18:17 → ERHOLD 18:17 → EDBEDREQ 19:21 → EDBEDREQTM 19:21 → MEDS 21:21
PROVIDERS: Emergency Medicine; Internal Medicine; Physician Assistant; ADMIT Internal Medicine
DX: A41.9 Sepsis, unspecified organism (principal); J18.9 Pneumonia, unspecified organism; E87.1 Hypo-osmolality and hyponatremia; K86.1 Other chronic pancreatitis; R07.89 Other chest pain; F10.20 Alcohol dependence, uncomplicated; F17.210 Nicotine dependence, cigarettes, uncomplicated; E11.65 Type 2 diabetes mellitus with hyperglycemia; E83.42 Hypomagnesemia; E87.6 Hypokalemia; Z79.4 Long term (current) use of insulin; Z11.52 Encounter for screening for COVID-19
CPT/HCPCS: 0241U; 36415; 71046; 71260; 80048; 80053; 82947; 83036; 83605; 83735; 84145; 84443; 84484; 85025; 85379; 87040; 93005; 93010; 94664; 94760; 96361; 96365-59; 96366-59; 96368; 99285-25; A9270; J0456; J0696; J1650; J1815; J1885; J3475; J3480; J7030; J7050; Q9967

== ENCOUNTER 2024-02-21 17:03 | Emergency (ER) | payer OTHER ==
[~2024-02-21] VITALS: Ht 185.4 cm; Wt 61.2 kg
[~2024-02-21 17:03] MED LIST changes: +AMOCLA875 PO; +GUAIFENESIN ER600 MG PO; +HUMULIN R100 UNIT/2; +IBUP400 PO; +METO25 PO; +VISBIOME 112.51 EACH PO
[2024-02-21 17:16] VITALS: BP 139/93
== END 2024-02-21 19:06 ==
LOC: ER 17:03
DX: R60.0 Localized edema (principal); E11.9 Type 2 diabetes mellitus without complications; F17.210 Nicotine dependence, cigarettes, uncomplicated; Z79.4 Long term (current) use of insulin; Z79.899 Other long term (current) drug therapy; Z88.6 Allergy status to analgesic agent
CPT/HCPCS: 93971; 99283-25

== ENCOUNTER 2024-12-19 18:20 | Inpatient (IN) | payer OTHER ==
[~2024-12-19] VITALS: Ht 185.4 cm; Wt 59.0 kg
[2024-12-19] MEDS ORDERED: NS 500 ML IV SCH (18:40)
[2024-12-19 19:07] LABS: BASOPHILS ABSOLUTE AUTO 0.03 K/mm3 (0.00-0.23); BASOPHILS PERCENT AUTO 1 % (0-2); EOSINOPHILS ABSOLUTE AUTO 0.07 K/mm3 (0.00-0.68); EOSINOPHILS PERCENT AUTO 1 % (0-6); Hematocrit 40.9 % (37.0-53.0); Hemoglobin 12.9 g/dL (13.5-17.5); IMMATURE GRAN ABSOLUTE AUTO 0.02 K/mm3 (0.00-0.10); IMMATURE GRAN PERCENT AUTO 0 % (0-1); LYMPHOCYTES ABSOLUTE AUTO 1.28 K/mm3 (0.84-5.20); LYMPHOCYTES PERCENT AUTO 22 % (21-46); MONOCYTES ABSOLUTE AUTO 0.73 K/mm3 (0.16-1.47); MONOCYTES PERCENT AUTO 12 % (4-13); Mean Corpuscular HGB Conc 31.5 g/dL (31.5-36.5); Mean Corpuscular Volume 96 fL (80-100); NEUTROPHILS ABSOLUTE AUTO 3.77 K/mm3 (1.96-9.15); NEUTROPHILS PERCENT AUTO 64 % (41-73); NRBC ABSOLUTE 0.00 K/mm3 (0.00-0.02); NRBC Auto 0.0 /100 WBC (0.0-0.2); Platelet Count 137 K/mm3 (150-400); RDW Coefficient Variation 13.0 % (11.7-14.2); RDW Standard Deviation 46.2 fL (35.1-46.3)
[2024-12-19] MEDS ORDERED: Tranexamic Acid 100 ML IV ONE (19:10)
[2024-12-19 19:23] LABS: Prothrombin Time Results 11.1 Sec (9.7-11.5)
[2024-12-19 19:26] LABS: Alanine Aminotransfer (ALT/SGP 60.0 U/L (12-78); Albumin, Blood 3.5 g/dL (3.4-5.0); Albumin/Globulin Ratio 1.0 (0.8-1.8); Anion Gap 4.0 mmol/L (3-11); Aspartate Aminotrans (AST/SGOT 48.0 U/L (12-37); Bilirubin, Total 0.4 mg/dL (0.1-1.0); Blood Urea Nitrogen 33.0 mg/dL (8-24); CO2, Blood 43.0 mmol/L (21-32); Calcium, Blood 9.1 mg/dL (8.5-10.1); Chloride, Blood 93.0 mmol/L (98-108); Creatinine, Blood 0.77 mg/dL (0.60-1.20); Globulin, Blood 3.4 g/dL (2.2-4.0); Glucose, Blood 72.0 mg/dL (70-99); Potassium, Blood 4.7 mmol/L (3.5-5.5); Sodium, Blood 135.0 mmol/L (136-145); Total Protein, Blood 6.9 g/dL (6.4-8.2)
[2024-12-19] MEDS ORDERED: Heparin Sodium 1000 Units/ML 10ML MDV ONE ×2 (19:45→21:22)
[2024-12-19] MEDS ORDERED: NS 1,000 ML IV ONE ×3 (19:45→21:39)
[2024-12-19] MEDS ORDERED: OxyCODONE 5 mg/Acetamin 325 mg TABLET PO PRN (19:50)
[2024-12-19] MEDS ORDERED: NS 1,000 ML IV SCH ×2 (19:50→21:15)
[2024-12-19] MEDS ORDERED: Ondansetron HCl 2 MG / ML 2ML Vial IV PRN (19:50)
[2024-12-19] MEDS ORDERED: HYDROmorphone HCl/Pf 1MG SYR IV ONE (20:25)
[2024-12-19 20:27] LABS: Calcium, Ionized (POC) 1.15 mmol/L (1.10-1.46); Chloride (POC) 88 mmol/L (98-108); Creatinine (POC) 0.9 mg/dL (0.8-1.3); Glucose (ISTAT POC) 80 mg/dL (70-99); Hematocrit (POC) 35.0 % (41.0-53.0); Hemoglobin (POC) 11.9 g/dL (13.5-17.5); Potassium (POC) 4.6 mmol/L (3.5-5.5); Sodium (POC) 136 mmol/L (135-148); Total CO2 (POC) 38 mmol/L (21-32)
[2024-12-19] MEDS ORDERED: HYDROmorphone HCl/Pf 1MG SYR ONE ×2 (20:30→20:53)
[2024-12-19] MEDS ORDERED: NS 100 ML IV ONE (21:22)
[2024-12-19] MEDS ORDERED: NS 250 ML IV ONE (21:22)
[2024-12-19] MEDS ORDERED: Midazolam HCl 1MG / ML 2ML Vial ONE (21:39)
[2024-12-19] MEDS ORDERED: FentaNYL Citrate 50 MCG/ML 2 ML Injection ONE (21:39)
--- NOTE | 2024-12-19 22:46 | NUR ---
ARRIVAL TO ICU: PT ARRIVED TO ICU BED 12 FROM FRAME RUNNER AT 2246. PT ALERT AND ORIENTED BUT YELLING AT THE STAFF, STATING THAT WE ARE ALL OUT TO GET HIM AND ARE PHYSICALLY AND VERBALLY RESTRAINING HIM AND FORCING HIM TO DO THINGS HE DOES NOT WANT TO DO. PT YELLING THAT HE CANNOT BREATHE BUT IS REFUSING TO WEAR THE OXYGEN. STATES THAT THE OXYGEN IS TOO COLD AND IS CHOKING HIM. SPO2 DOWN TO 78% AT TIMES. ATTEMPTED TO PLACE PT ON HEATED HI-FLOW FOR COMFORT, PT REFUSED. PT GOT HIMSELF UP OUT OF THE BED AND INTO THE CHAIR DESPITE BEING TOLD THAT HE COULD BLEED OUT AND . PT STATES HE DOES NOT CARE. DR. MONGE AT THE BEDSIDE INFORMING PT OF THE RISK OF FROM HIS ARTERIAL BLEED IN HIS ABDOMEN. PT STATES THAT WE DO NOT ACTUALLY WANT TO HELP HIM. PT FREQUENTLY YELLING TO LEAVE HIM THE FUCK ALONE AND TO GET OUT OF HIS ROOM. PT REFUSING TO WEAR THE MONITOR UPON ARRIVAL TO ICU. PT INCREASINGLY WEAK AND PALE. MONITOR NOW ON THE PT AT 2340 WHILE PT ASLEEP. UNABLE TO DO ADMISSION PT WILL NOT PARTICIPATE. UNABLE TO DO HEAD TO TOE ASSESSMENT, PT REFUSING. PT STATES HE WANTS TO LIVE BUT WILL NOT ALLOW THE STAFF TO HELP HIM. PT FATHER AT THE BEDSIDE IN AN ATTEMPT TO CONVINCE THE PT TO CONSENT FOR SURGERY. PT BP DROPPING, SBP 88-100. HR 99-108. PT NOW KNEELING ON THE GROUND AND REFUSING TO GET UP. DR. HINES ALSO AWARE. PT WANTING TO LEAVE AMA WITH FATHER. PT HAS ABDOMINAL BINDER ON, UNABLE TO ASSESS ABDOMEN AT THIS TIME. PT CURRENTLY SITTING ON THE GROUND. SECURITY AT THE BEDSIDE. PT CONTINUES TO REMAIN ALERT AND ORIENTED. PT GOT HIMSELF DRESSED AND INTO THE WHEELCHAIR. AMA FORM SIGNED BY PT AND PT FATHER TAKING HIM HOME.
--- NOTE | 2024-12-19 23:23 | NUR ---
PATIENT DRAPPED ONTO PROCEDURE TABLE AND THEN BECAME COMBATIVE. PATIENT COMPLAINING THAT HE WASN'T ABLE TO BREATHE LAYING FLAT AND THAT HE WAS HAVING SINUS ISSUES AND HIS EARS PLUGGED. PATIENT REFUSING TO FOLLOW COMMANDS FROM THE STAFF AND BEGAN TO FLAIL HIS ARMS. SECURITY TEAM CALLED. PATIENT SITTING UP ON PROCEDURE TABLE YELLING PROFANITY AT THE STAFF AND REFUSING TO DO THE PROCEDURE. PATIENT TRANSFERRED TO INPATIENT BED AND TRANSFERRED TO ICU. PATIENT REFUSING TO BE PLACED ON THE MONITOR. BEDSIDE REPORT GIVEN TO RN.
[2024-12-19 23:30] VITALS: BP 101/69
[2024-12-19 23:45] VITALS: BP 88/56
[2024-12-20] MEDS ORDERED: Insulin Human Lispro 100 Units/ML 3ML Syringe SC SCH
--- NOTE | 2024-12-20 00:46 | NUR ---
AMA: PT LEFT AMA WITH HIS FATHER AT 0010 DESPITE MANY ATTEMPTS TO CONVINVCE THE PT TO STAY AND RECEIVE TREATMENT. DR. MONGE AND DR. HINES BOTH AWARE. PT TOOK ALL BELONGINGS WITH HIM. PIV TO RAC AND LW BOTH REMOVED BEFORE PT LEAVING. PT CONTINUED TO SHOUT AT THE STAFF TO STAY AWAY FROM HIM AND LEAVE HIM ALONE.
[2024-12-20] MEDS ORDERED: OMEPRAZOLE MAGN20 M1 PO (17:24)
== END 2024-12-20 00:10 | disposition left against medical advice (07) | DRG 919 ==
LOC: ER 18:20 → ICUE 20:52
PROVIDERS: Student in an Organized Health Care Education/Training Program; ADMIT Internal Medicine
PROC: 30233N1 Transfusion of Nonautologous Red Blood Cells into Peripheral Vein, Percutaneous Approach (ICD-10-PCS; principal; 2024-12-19)
DX: M96.841 Postprocedural hematoma of a musculoskeletal structure following other procedure (principal); R57.8 Other shock; E11.9 Type 2 diabetes mellitus without complications; F17.210 Nicotine dependence, cigarettes, uncomplicated; F10.21 Alcohol dependence, in remission; Y84.8 Other medical procedures as the cause of abnormal reaction of the patient, or of later complication, without mention of misadventure at the time of the procedure; D64.9 Anemia, unspecified; Z96.41 Presence of insulin pump (external) (internal); Z53.29 Procedure and treatment not carried out because of patient's decision for other reasons; Z88.8 Allergy status to other drugs, medicaments and biological substances; Z79.4 Long term (current) use of insulin
CPT/HCPCS: 74177; 80047; 80053; 85014; 85025; 85610; 85730; 86850; 86900; 86901; 86923; A9270; J1171; J1644; J2250; J3010; J7030; J7050; P9016; Q9967

== ENCOUNTER 2024-12-20 16:46 | Emergency (ER) | payer OTHER ==
[~2024-12-20] VITALS: Ht 182.9 cm; Wt 58.1 kg
[2024-12-20 17:06] LABS: Calcium, Ionized (POC) 1.17 mmol/L (1.10-1.46); Chloride (POC) 88 mmol/L (98-108); Creatinine (POC) 0.9 mg/dL (0.8-1.3); Glucose (ISTAT POC) 134 mg/dL (70-99); Hematocrit (POC) 28.0 % (41.0-53.0); Hemoglobin (POC) 9.5 g/dL (13.5-17.5); Potassium (POC) 4.3 mmol/L (3.5-5.5); Sodium (POC) 137 mmol/L (135-148); Total CO2 (POC) 37 mmol/L (21-32)
[2024-12-20] MEDS ORDERED: OMEPRAZOLE MAGN20 M1 PO (17:24)
[2024-12-20] MEDS ORDERED: HYDROmorphone HCl/Pf 1MG SYR IV ONE (17:25)
[2024-12-20 17:40] LABS: BASOPHILS ABSOLUTE AUTO 0.03 K/mm3 (0.00-0.23); BASOPHILS PERCENT AUTO 0 % (0-2); EOSINOPHILS ABSOLUTE AUTO 0.00 K/mm3 (0.00-0.68); EOSINOPHILS PERCENT AUTO 0 % (0-6); Hematocrit 26.4 % (37.0-53.0); Hemoglobin 8.6 g/dL (13.5-17.5); IMMATURE GRAN ABSOLUTE AUTO 0.02 K/mm3 (0.00-0.10); IMMATURE GRAN PERCENT AUTO 0 % (0-1); LYMPHOCYTES ABSOLUTE AUTO 1.17 K/mm3 (0.84-5.20); LYMPHOCYTES PERCENT AUTO 15 % (21-46); MONOCYTES ABSOLUTE AUTO 0.83 K/mm3 (0.16-1.47); MONOCYTES PERCENT AUTO 11 % (4-13); Mean Corpuscular HGB Conc 32.6 g/dL (31.5-36.5); Mean Corpuscular Volume 93 fL (80-100); NEUTROPHILS ABSOLUTE AUTO 5.64 K/mm3 (1.96-9.15); NEUTROPHILS PERCENT AUTO 73 % (41-73); NRBC ABSOLUTE 0.00 K/mm3 (0.00-0.02); NRBC Auto 0.0 /100 WBC (0.0-0.2); Platelet Count 108 K/mm3 (150-400); RDW Coefficient Variation 15.0 % (11.7-14.2); RDW Standard Deviation 50.0 fL (35.1-46.3)
[2024-12-20 17:41] VITALS: BP 88/61
[2024-12-20] MEDS ORDERED: NS 500 ML IV SCH (17:45)
[2024-12-20 17:53] LABS: Alanine Aminotransfer (ALT/SGP 44.0 U/L (12-78); Albumin, Blood 2.9 g/dL (3.4-5.0); Albumin/Globulin Ratio 1.2 (0.8-1.8); Anion Gap 1.0 mmol/L (3-11); Aspartate Aminotrans (AST/SGOT 30.0 U/L (12-37); Bilirubin, Total 0.3 mg/dL (0.1-1.0); Blood Urea Nitrogen 32.0 mg/dL (8-24); CO2, Blood 41.0 mmol/L (21-32); Calcium, Blood 8.2 mg/dL (8.5-10.1); Chloride, Blood 96.0 mmol/L (98-108); Creatinine, Blood 0.8 mg/dL (0.60-1.20); Globulin, Blood 2.5 g/dL (2.2-4.0); Glucose, Blood 143.0 mg/dL (70-99); Magnesium, Blood 1.6 mg/dL (1.6-2.4); Potassium, Blood 4.2 mmol/L (3.5-5.5); Sodium, Blood 134.0 mmol/L (136-145); Total Protein, Blood 5.4 g/dL (6.4-8.2)
== END 2024-12-20 18:39 | disposition home or self-care (01) ==
LOC: ER 16:46
PROVIDERS: Student in an Organized Health Care Education/Training Program
DX: T80.89XA Other complications following infusion, transfusion and therapeutic injection, initial encounter (principal); S30.1XXA Contusion of abdominal wall, initial encounter; D62 Acute posthemorrhagic anemia; E11.9 Type 2 diabetes mellitus without complications; F17.210 Nicotine dependence, cigarettes, uncomplicated; Z88.6 Allergy status to analgesic agent; Z79.4 Long term (current) use of insulin; Z79.899 Other long term (current) drug therapy; X58.XXXA Exposure to other specified factors, initial encounter
CPT/HCPCS: 74174; 80047; 80053; 83735; 85014; 85025; 86850; 86900; 86901; 86923; 96374-59; 99284-25; J1171; J7030; Q9967